=== PATIENT | male | born 1980 | race Caucasian/White ===

== ENCOUNTER 2020-08-24 13:38 | Emergency (ER) | payer MEDICAID, SELFPAY ==
--- NOTE | 2020-08-24 | ECG_ITS ---
Test Reason : PALPITATIONS Blood Pressure : / mmHG Vent. Rate : 121 BPM Atrial Rate : 121 BPM P-R Int : 144 ms QRS Dur : 086 ms QT Int : 318 ms P-R-T Axes : 036 007 016 degrees QTc Int : 451 ms Sinus tachycardia Otherwise normal ECG When compared to the previous EKG of 15 august 2015, rate is faster Referred By: Generic ED Physician Electronically Signed By:NATHALIA HANNA
--- NOTE | ~2020-08-24 | CT_ITS ---
EXAMINATION: CT HEAD WITHOUT CONTRAST CLINICAL INFORMATION: Dizziness COMPARISON: CT head 03/29/2013 TECHNIQUE: Contiguous axial imaging was performed from the skull base to vertex without intravenous administration of contrast. Coronal and sagittal reformatted images are performed at the CT scanner. [This CT examination was performed using dose optimization techniques as appropriate, variously including the following: *Automated exposure control *Adjustment of mA and/or kV according to patient size (this includes techniques or standardized protocols for targeted exams where dose is matched to indication/reason for exam; i.e. extremities or head) *Use of iterative reconstruction technique] DLP: 785 mGy-cm. FINDINGS: There is no evidence of acute intracranial hemorrhage or territorial infarction. No abnormal mass-effect or midline shift is seen. Fitzgerald to white matter differentiation is well preserved. No extra-axial fluid collections are identified. The ventricles are normal in size. There is no abnormal attenuation within the brain parenchyma. There is no osseous abnormality. The mastoid air cells and visualized portions of the paranasal sinuses are well-aerated. CT/CT head/brain wo con IMPRESSION: No acute intracranial pathology.
[2020-08-24 15:09] VITALS: BP 150/92; PULSE 130; RESP 28; TEMP 37.1; O2SAT 100; BMI 40.7
[2020-08-24 18:43] LABS: MANUAL DIFF FLAG NO
[2020-08-24 18:47] LABS: Basophils Percent Auto 0.1 % (0-2); Eosinophils Percent Auto 0.2 % (0-4); Hematocrit 43.8 % (42-52); Hemoglobin 14.9 g/dl (14.0-18.0); Imm Gran Abs Auto 0.04 X10*3/uL (0.00-0.03); Imm Gran Pct Auto 0.4 % (0.0-0.4); Lymphocytes Absolute Auto 1.4 X10*3/uL (1.2-4.9); Lymphocytes Percent Auto 13.5 % (20-40); Mean Corpuscular Hemoglobin 29.3 pg (27.0-33.0); Mean Corpuscular Volume 86.1 fL (80-98); Mean Platelet Volume 9.7 fL (9.4-12.4); Monocytes Absolute Auto 0.4 X10*3/uL (0.1-1.2); Monocytes Percent Auto 3.9 % (2-11); Neutrophils Absolute Auto 8.5 X10*3/uL (2.0-8.3); Neutrophils Percent Auto 81.9 % (45-73); Platelet Count 237 X10*3/uL (160-400); Red Blood Count 5.09 X10*6/uL (4.60-5.80); White Blood Count 10.4 X10*3/uL (4.8-10.8)
[2020-08-24 19:11] LABS: Alanine Aminotransferase 72 U/L (0-40); Albumin Level 4.3 g/dL (3.5-5.0); Alkaline Phosphatase 68 U/L (39-117); Anion Gap 14 (12-20); Aspartate Amino Transferase 35 U/L (5-37); Bilirubin Total 0.9 mg/dL (0.0-1.0); Blood Urea Nitrogen 19 mg/dL (9-16); Calcium 9.2 mg/dL (8.4-10.2); Carbon Dioxide 23 mmol/L (22-29); Chloride 106 mmol/L (96-108); Estimated Glomerular Filt Rate > 60; Glucose Random 132 mg/dL (60-115); Potassium 4.3 mmol/L (3.3-5.1); Sodium 139 mmol/L (135-145); Total Protein 7.5 g/dL (6.5-8.0)
[2020-08-24 19:17] LABS: Troponin-I High Sensitivity < 3.5 ng/L (<3.5-35.0)
[2020-08-24] MEDS: 0.9 % Sodium Chloride 1,000 ML 999 ML IV (21:01)
[2020-08-24 21:18] LABS: INTERNATIONAL NORM RATIO 1.1 (0.9-1.1); Prothrombin Time 12.6 SEC (10.8-13.0)
[2020-08-24 21:20] VITALS: BP 137/69; PULSE 91
[2020-08-24 21:20] LABS: Partial Thromboplastin Time 34.6 SEC (24.1-38.0)
[2020-08-24 21:21] VITALS: BP 145/74; PULSE 105
[2020-08-24 21:21] LABS: Magnesium 1.9 mg/dL (1.6-2.6)
[2020-08-24 21:24] LABS: D Dimer < 200 NG/ML
[2020-08-24 21:25] VITALS: BP 151/90; PULSE 111
[2020-08-24 21:42] LABS: Thyroid Stimulating Hormone 0.47 uIU/mL (0.32-4.0)
[2020-08-24 21:59] VITALS: BP 130/74; PULSE 93; RESP 18; TEMP 37.1; O2SAT 98
[2020-08-24 22:22] LABS: Glucose Urine UA NEG (NEG); Leukocyte Esterase Urine NEG (NEG); Nitrite Urine NEG (NEG); Specific Gravity - Urine 1.025 (1.005-1.025); Urine Blood NEG (NEG); Urine Ketones NEG (NEG); Urine Protein NEG (NEG-TRACE)
[2020-08-24 22:28] LABS: Appearance Urine CLEAR; Color Urine YELLOW
[2020-08-24 22:47] LABS: Amphetamine Screen Urine Not Detected (Not Detect); Barbiturates, Urine Not Detected (Not Detect); Benzodiazepines Screen Urine Not Detected (Not Detect); Cannabinoid Screen Urine POSITIVE (Not Detect); Cocaine Screen Urine Not Detected (Not Detect); Opiate Screen Urine Not Detected (Not Detect); Phencyclidine Screen Urine Not Detected (Not Detect)
[2020-08-24 23:35] LABS: Troponin-I High Sensitivity < 3.5 ng/L (<3.5-35.0)
--- NOTE | 2020-08-24 23:55 | ED.ARRPALP ---
HPI - Arrhythmia/Palpitations General Chief Complaint: Arrhythmia/Palpitations Stated Complaint: DIZZY SHAKEY RAPID HEART BEAT Time Seen by Provider: 08/24/20 20:34 Source: patient Mode of arrival: ambulatory Limitations: no limitations History of Present Illness HPI narrative: Patient presents to ED for a moment of dizziness diaphoretic, and palpitation that occurred at 11:00 o'clock after soda. Patient patient states he had moment of dizziness like the room was spinning. Patient denies ever having chest pain or shortness of breath. Patient denies hitting head, drug use, or alcohol use. Related Data Allergies Allergy/AdvReac Type Severity Reaction Status Date / Time No Known Allergies Allergy Unverified 01/28/20 17:27 Review of Systems Review of Systems: Yes all other systems are reviewed and are negative Constitutional: Constitutional: Reports as per HPI and Reports no additional constitutional complaints Eyes: Eyes: Reports as per HPI and Reports no additional eye complaints ENT: Reports system reviewed and no additional complaints, except as documented, Reports as per HPI, Reports dizziness and Reports dry mouth Cardiovascular: Cardiovascular: Reports as per HPI, Reports no additional cardiovascular complaints, Denies chest pain, Denies chest pain at rest and Denies chest pain with activity Comments: Palpitation Respiratory: Respiratory: Reports as per HPI and Reports no additional respiratory complaints Gastrointestinal: Gastrointestinal: Reports as per HPI and Reports no additional gastrointestinal complaints Genitourinary: Genitourinary: Reports no additional male genitourinary complaints and Reports as per HPI Musculoskeletal: Musculoskeletal: Reports no additional musculoskeletal complaints and Reports as per HPI Neurologic: Reports system reviewed and no additional complaints, except as documented, Reports as per HPI and Reports dizziness [facility] [place] Past Medical History Medical History (Updated 08/25/20 @ 00:08 by KORINA Pascal) Asthma HTN (hypertension) Social History Social History Advance Directives: Yes Advance Directives Information Provided: No Advance Directives on File: No Physical Exam Vital Signs: Vital Signs: Last Vital Signs Temp 98.7 F 08/24/20 21:59 Pulse 87 08/25/20 00:00 Resp 18 08/25/20 00:00 BP 149/95 H 08/25/20 00:00 Pulse Ox 97 08/25/20 00:00 Body Mass Index 40.7 Const: General: cooperative, healthy appearing, comfortable, no acute distress, well developed, alert, awake and Physically active Orientation/consciousness: patient oriented x3 HENMT: Head: Yes normal to inspection, Yes No palpable skull fracture present, Yes normocephalic, Yes atraumatic and No abrasion Eyes: Other: Negative nystagmus General: appearance normal, both eyes and all related structures Neck: Neck: Yes normal visual inspection, Yes full ROM, Yes no lymphadenopathy, Yes no meningeal signs, Yes trachea midline, Yes supple and No tender Resp: Effort & Inspection: normal respiratory effort and able to speak in complete sentences Auscultation: clear to auscultation bilaterally Cardio: Jugular venous distension: no JVD Heart sounds: S1 normal heart sound present and S2 normal heart sound present GI: Inspection: Yes normal to inspection and No abdominal wall ecchymosis Palpation (GI): Soft to palpation, not firm, nontender, no guarding and not rigid : General: No CVA tenderness and Yes no CVA tenderness Back/Spine/Pelvis: Back: no CVA tenderness, No CVA tenderness and No back tenderness Skin: General skin exam: no rashes or lesions noted and elasticity normal Neuro: Other: Negative slurred speech. Negative facial droop. All extremities equal strength and 5+. Negative Romberg sign. [id number] and rapid hand movement intact. Negative pronator drift General: patient oriented x3, no meningeal signs and CN's II-XI intact bilaterally Cranial nerves: Yes CN's II-XII intact bilaterally Extrem: General: Yes normal to inspection and Yes full ROM Psych: Appearance: grossly normal, well kempt and not disheveled Course Course Course Narrative: Patient will have cardiac evaluation. Negative for any neuro deficit or signs of stroke with patient will be sent for head CT. Patient also have thyroid and D-dimer sent to make sure patient is not having a typical presentation of PE or thyroid stone. Patient denies ever having chest pain or shortness of breath. Reevaluation(s) Reevaluation #1: EKG does show sinus tachycardia. Patient's troponin came back negative patient's D-dimer negative. Patient's PERC score 1. Head CT scan came back negative for any bleed. Might have had an anxiety reaction but will do so 2nd troponin to ensure there is no cardiac etiology. No need for chest x-ray due to patient denies any chest pain or shortness of breath. Patient has normal gait. Patient on the phone playing games. Patient not any distress. Reevaluation #2: Second troponin came back negative. Patient presently is asymptomatic. Patient informed to follow-up with his PCP. Patient might have had an anxiety attack. Patient states he was thinking about sad thoughts before episode, but due to risk factors and patient had a medical evaluation. Diagnosis will be dizziness. MDM - Arrhythmia/Palpitations MDM Narrative Medical decision making narrative: Dizziness. Lab Data Result diagrams: 08/24/20 18:37 08/24/20 18:37 Labs: Lab Results 08/24/20 08/24/20 08/24/20 Range/Units 18:37 18:37 18:37 WBC 10.4 (4.8-10.8) X10*3/uL RBC 5.09 (4.60-5.80) X10*6/uL Hgb 14.9 (14.0-18.0) g/dl Hct 43.8 (42-52) % MCV 86.1 (80-98) fL MCH 29.3 (27.0-33.0) pg MCHC 34.0 (31.0-36.0) g/dl RDW 12.0 (11.0-16.0) % Plt Count 237 (160-400) X10*3/uL MPV 9.7 (9.4-12.4) fL Immature Gran % (Auto) 0.4 (0.0-0.4) % Neut % (Auto) 81.9 H (45-73) % Lymph % (Auto) 13.5 L (20-40) % Cameron % (Auto) 3.9 (2-11) % Eos % (Auto) 0.2 (0-4) % Baso % (Auto) 0.1 (0-2) % Lymph # (Auto) 1.4 (1.2-4.9) X10*3/uL Cameron # (Auto) 0.4 (0.1-1.2) X10*3/uL Eos # (Auto) 0.0 (0.0-0.4) X10*3/uL Baso # (Auto) 0.0 (0.0-0.2) X10*3/uL Abs Immat Gran (auto) 0.04 H (0.00-0.03) X10*3/uL Absolute Neuts (auto) 8.5 H (2.0-8.3) X10*3/uL Absolute Nucleated RBC 0.000 (0.0-0.012) X10*3/uL Nucleated RBC % (auto) 0.0 (0.0-0.2) /100WBC PT (10.8-13.0) SEC INR (0.9-1.1) APTT (24.1-38.0) SEC D-Dimer NG/ML Sodium 139 (135-145) mmol/L Potassium 4.3 (3.3-5.1) mmol/L Chloride 106 (96-108) mmol/L Carbon Dioxide 23 (22-29) mmol/L Anion Gap 14 (12-20) BUN 19 H (9-16) mg/dL Creatinine 0.97 (0.5-1.4) mg/dL Estim Creat Clear Calc 123.0 Estimated GFR > 60 Random Glucose 132 H (60-115) mg/dL Calcium 9.2 (8.4-10.2) mg/dL Magnesium 1.9 (1.6-2.6) mg/dL Total Bilirubin 0.9 (0.0-1.0) mg/dL AST 35 (5-37) U/L ALT 72 H (0-40) U/L Alkaline Phosphatase 68 (39-117) U/L Troponin I High Sens < 3.5 (<3.5-35.0) ng/L Total Protein 7.5 (6.5-8.0) g/dL Albumin 4.3 (3.5-5.0) g/dL TSH 0.47 (0.32-4.0) uIU/mL Urine Color Urine Appearance Urine pH (5.0-8.0) Ur Specific Bowman (1.005-1.025) Urine Protein (NEG-TRACE) MG/DL Urine Glucose (UA) (NEG) MG/DL Urine Ketones (NEG) MG/DL Urine Blood (NEG) Urine Nitrite (NEG) Ur Leukocyte Esterase (NEG) Urine Opiates Screen (Not Detect) Ur Barbiturates Screen (Not Detect) Ur Phencyclidine Scrn (Not Detect) Ur Amphetamines Screen (Not Detect) U Benzodiazepines Scrn (Not Detect) Urine Cocaine Screen (Not Detect) U Marijuana (THC) Screen (Not Detect) 08/24/20 08/24/20 08/24/20 Range/Units 20:59 21:35 21:35 WBC (4.8-10.8) X10*3/uL RBC (4.60-5.80) X10*6/uL Hgb (14.0-18.0) g/dl Hct (42-52) % MCV (80-98) fL MCH (27.0-33.0) pg MCHC (31.0-36.0) g/dl RDW (11.0-16.0) % Plt Count (160-400) X10*3/uL MPV (9.4-12.4) fL Immature Gran % (Auto) (0.0-0.4) % Neut % (Auto) (45-73) % Lymph % (Auto) (20-40) % Cameron % (Auto) (2-11) % Eos % (Auto) (0-4) % Baso % (Auto) (0-2) % Lymph # (Auto) (1.2-4.9) X10*3/uL Cameron # (Auto) (0.1-1.2) X10*3/uL Eos # (Auto) (0.0-0.4) X10*3/uL Baso # (Auto) (0.0-0.2) X10*3/uL Abs Immat Gran (auto) (0.00-0.03) X10*3/uL Absolute Neuts (auto) (2.0-8.3) X10*3/uL Absolute Nucleated RBC (0.0-0.012) X10*3/uL Nucleated RBC % (auto) (0.0-0.2) /100WBC PT 12.6 (10.8-13.0) SEC INR 1.1 (0.9-1.1) APTT 34.6 (24.1-38.0) SEC D-Dimer < 200 NG/ML Sodium (135-145) mmol/L Potassium (3.3-5.1) mmol/L Chloride (96-108) mmol/L Carbon Dioxide (22-29) mmol/L Anion Gap (12-20) BUN (9-16) mg/dL Creatinine (0.5-1.4) mg/dL Estim Creat Clear Calc Estimated GFR Random Glucose (60-115) mg/dL Calcium (8.4-10.2) mg/dL Magnesium (1.6-2.6) mg/dL Total Bilirubin (0.0-1.0) mg/dL AST (5-37) U/L ALT (0-40) U/L Alkaline Phosphatase (39-117) U/L Troponin I High Sens (<3.5-35.0) ng/L Total Protein (6.5-8.0) g/dL Albumin (3.5-5.0) g/dL TSH (0.32-4.0) uIU/mL Urine Color YELLOW Urine Appearance CLEAR Urine pH 7.0 (5.0-8.0) Ur Specific Bowman 1.025 (1.005-1.025) Urine Protein NEG (NEG-TRACE) MG/DL Urine Glucose (UA) NEG (NEG) MG/DL Urine Ketones NEG (NEG) MG/DL Urine Blood NEG (NEG) Urine Nitrite NEG (NEG) Ur Leukocyte Esterase NEG (NEG) Urine Opiates Screen Not Detected (Not Detect) Ur Barbiturates Screen Not Detected (Not Detect) Ur Phencyclidine Scrn Not Detected (Not Detect) Ur Amphetamines Screen Not Detected (Not Detect) U Benzodiazepines Scrn Not Detected (Not Detect) Urine Cocaine Screen Not Detected (Not Detect) U Marijuana (THC) Screen POSITIVE H (Not Detect) 08/24/20 Range/Units 22:58 WBC (4.8-10.8) X10*3/uL RBC (4.60-5.80) X10*6/uL Hgb (14.0-18.0) g/dl Hct (42-52) % MCV (80-98) fL MCH (27.0-33.0) pg MCHC (31.0-36.0) g/dl RDW (11.0-16.0) % Plt Count (160-400) X10*3/uL MPV (9.4-12.4) fL Immature Gran % (Auto) (0.0-0.4) % Neut % (Auto) (45-73) % Lymph % (Auto) (20-40) % Cameron % (Auto) (2-11) % Eos % (Auto) (0-4) % Baso % (Auto) (0-2) % Lymph # (Auto) (1.2-4.9) X10*3/uL Cameron # (Auto) (0.1-1.2) X10*3/uL Eos # (Auto) (0.0-0.4) X10*3/uL Baso # (Auto) (0.0-0.2) X10*3/uL Abs Immat Gran (auto) (0.00-0.03) X10*3/uL Absolute Neuts (auto) (2.0-8.3) X10*3/uL Absolute Nucleated RBC (0.0-0.012) X10*3/uL Nucleated RBC % (auto) (0.0-0.2) /100WBC PT (10.8-13.0) SEC INR (0.9-1.1) APTT (24.1-38.0) SEC D-Dimer NG/ML Sodium (135-145) mmol/L Potassium (3.3-5.1) mmol/L Chloride (96-108) mmol/L Carbon Dioxide (22-29) mmol/L Anion Gap (12-20) BUN (9-16) mg/dL Creatinine (0.5-1.4) mg/dL Estim Creat Clear Calc Estimated GFR Random Glucose (60-115) mg/dL Calcium (8.4-10.2) mg/dL Magnesium (1.6-2.6) mg/dL Total Bilirubin (0.0-1.0) mg/dL AST (5-37) U/L ALT (0-40) U/L Alkaline Phosphatase (39-117) U/L Troponin I High Sens < 3.5 (<3.5-35.0) ng/L Total Protein (6.5-8.0) g/dL Albumin (3.5-5.0) g/dL TSH (0.32-4.0) uIU/mL Urine Color Urine Appearance Urine pH (5.0-8.0) Ur Specific Bowman (1.005-1.025) Urine Protein (NEG-TRACE) MG/DL Urine Glucose (UA) (NEG) MG/DL Urine Ketones (NEG) MG/DL Urine Blood (NEG) Urine Nitrite (NEG) Ur Leukocyte Esterase (NEG) Urine Opiates Screen (Not Detect) Ur Barbiturates Screen (Not Detect) Ur Phencyclidine Scrn (Not Detect) Ur Amphetamines Screen (Not Detect) U Benzodiazepines Scrn (Not Detect) Urine Cocaine Screen (Not Detect) U Marijuana (THC) Screen (Not Detect) ECG Data Interpretation: Sinus tachycardia. Ventricular rate was 121. Pr interval 144. QRS 86. QTC 451. Negative STEMI Discharge Plan Discharge Clinical Impression: Palpitations, Dizziness Patient Disposition: Home, Self-Care Instructions: Heart Palpitations (ED), Dizziness (ED) Additional Instructions: Regrese al servicio de urgencias de inmediato si tiene dolor de pecho,caida facial, dificultad para respirar, dificultad para hablar, p?rdida de la visi?n, dolor de trevor, par?lisis, mareos, hinchaz?n de las piernas, dolor en la pantorrilla, tos con kailash, fiebre, escalofr?os o cualquier otro s?ntoma preocupante. Jamal troponinas resultaron negativas para un ataque card?aco. Poe nivel de tiroides volvi? a la normalidad. Poe an?lisis de kailash, patricia la funci?n renal, la hemoglobina, el hematocrito y el recuento de gl?bulos blancos volvi? a la normalidad. jamal enzimas hep?amisha volvieron a la normalidad. Poe orina no muestra infecci?n. La tomograf?a computarizada de la trevor result? negativa para sangrado. Jn un seguimiento con poe PCP. Referrals: Jazlyn Gagnon, DO [Primary Care Provider] - 2 days (Follow-up for dizziness/palpitation. Patient had normal medical workup in the ED.) Interventions: ED Discharge Assessment Last Done: 08/25/20 00:33 Discharge Date/Time: 08/25/20 00:35 Print Language: [place]ese
[2020-08-25] VITALS: BP 149/95; PULSE 87; RESP 18; O2SAT 97
== END 2020-08-25 00:35 | disposition home or self-care (01) ==
PROVIDERS: Physician Assistant; Emergency Provider Emergency Medicine; PCP Family Medicine
DX: R00.2 Palpitations (principal); R42 Dizziness and giddiness; R00.0 Tachycardia, unspecified; I10 Essential (primary) hypertension; J45.909 Unspecified asthma, uncomplicated; F12.90 Cannabis use, unspecified, uncomplicated
CPT/HCPCS: 36415; 70450; 80053; 80307; 81003; 83735; 84443; 84484; 85025; 85379; 85610; 85730; 93005; 96360; 99284

== ENCOUNTER 2021-07-05 10:25 | Outpatient (REF) | payer MEDICAID, SELFPAY ==
--- NOTE | 2021-07-05 10:23 | EMG_ITS ---
This is a 41-year-old man with 1 month history of pain, numbness, and tingling intermittently in both feet. His neurological examination reveals cranial nerves II through XII normal. Muscle tone and strength are normal in all 4 extremities. Deep tendon reflexes symmetrical, 2+. Plantar responses are flexor. IMPRESSION: Rule out peripheral neuropathy. Nerve conduction EMG study: Normal electrodiagnostic study of both lower extremities. There is no electrodiagnostic evidence of nerve entrapment or generalized peripheral neuropathy. Normal EMG of the right L4-S1 innervated muscles. MD TANESHA Bassett/DERRICK / [id number]
== END 2021-07-05 10:26 | disposition home or self-care (01) ==
LOC: HO.NEURO 10:25
PROVIDERS: Visit Provider Family Medicine
DX: R20.8 Other disturbances of skin sensation (principal)
CPT/HCPCS: 95885; 95911

== ENCOUNTER → 2022-01-09 13:07 | Outpatient (BNVA) | payer MEDICAID, SELFPAY | PROVIDERS: PCP Family Medicine; Referring Provider Family Medicine; Visit Provider Internal Medicine | DX: R07.2 Precordial pain (principal) | CPT/HCPCS: 93005; 99202 ==

== ENCOUNTER → 2022-01-31 08:56 | Outpatient (REF) | payer MEDICAID, SELFPAY ==
--- NOTE | 2022-01-31 08:58 | CA_ITS ---
Acquisition Time: 2022-01-31 09:56:43 Total Exercise Time: 00:07:06 Test Indications: Chest Pain Medications: SEE H Protocol: VERONIQUE Max HR: 162 BPM 91% of Pred: 178 BPM Max BP: 148/080 mmHG Max Work Load: 8.6 METS Exercise stress test with exercise 7 min 6 sec of Veronique protocol, achieving 91% MPHR, with fatigue and moderate sob, No chest discomfort, without arrythmia, with normotensive response to exercise, without EKG changes meeting criteira for ischemia. In recovery his breathing improved with rest. Test reviewed with Dr Rogers. Referred By: Dylan Rogers Overread By: JERE ROSAS
--- NOTE | 2022-01-31 09:10 | CA_ITS ---
Transthoracic Echocardiogram Patient (Last, First, Middle): Jose Antonio Sousa, Gender: Male Date of : 1980 Age: 41 Procedure Date: 01/31/2022 Procedure Type: Transthoracic Echocardiogram Location: OP Height: 180.34 cm Weight: 117.94 kg BSA: 2.36 m2 Heart Rate: bpm BP: 140 / 70 mmHg Gluer: Referring MD: Dylan Rogers MD Symptoms: R07.2 - Precordial pain Study Quality: Good ECG Rhythm: Sinus Conclusions: - The left ventricular systolic function is normal. The calculated ejection fraction is 62% by biplane method. - No obvious valvular pathology seen on this study. Findings Left Ventricle Normal left ventricular cavity size. There is mildly increased left ventricular wall thickness. The left ventricular systolic function is normal. The calculated ejection fraction is 62% by biplane method. There is no evidence of regional wall motion abnormalities. Diastolic function is normal for age. LV peak GLS -19.4%. Right Ventricle Normal right ventricular cavity size and systolic function. Atria Both atria are normal in size. Aortic Valve There is a normal trileaflet aortic valve. There is no aortic valve stenosis. There is no aortic valve regurgitation. Mitral Valve The mitral valve appears normal. There is no mitral valve regurgitation. There is no mitral valve stenosis. Pulmonic Valve The pulmonic valve is likely normal. Tricuspid Valve Normal tricuspid valve structure. There is trace tricuspid valve regurgitation. There is no evidence of pulmonary hypertension. Great Vessels Variable measurements across the ascending aorta. From 3.4-4 cm. Suspect technical. Venous The inferior vena cava is normal in size and collapses less than 50% with inspiration. Pericardium/Pleural There is no evidence of pericardial effusion. Prior Study Comparison No prior study available for comparison. Recommendations, Care & Conclusions No obvious valvular pathology seen on this study. Measurements 2D Linear Measurements IVSd: 1.14 0.6-0.9/0.6-1.0 cm LVIDd: 4.95 3.9-5.3/4.2-5.9 cm LVIDd Index: 2.10 2.4-3.2/2.2-3.1 cm/m2 LVIDs: 3.23 2.0-3.6 cm LVPWd: 1.11 0.7-1.1 cm LA Diam: 4.70 2.7-3.8/3.0-4.0 cm LAIDs Index: 1.99 1.5-2.3 cm/m2 LV Mass: 262.04 67-162/88-224 g LV Mass Index: 111.03 43-95/49-115 g/m2 LVOT Diam: 2.30 3.0+(-)1.3 cm 2D Systolic Function EF 4C: 63.60 >55% EF 2C: 63.40 >55% EF BiP: 62.10 >55% Mitral Valve MV Pk E: 0.77 MV PK A: 0.66 MV Decel Time: 179.00 E/A: 1.20 E'Lateral: 9.90 E'Medial: 6.42 E/E' Med: 12.00 E/E' Lat: 7.80 PHT: 52.00 MVA PHT: 4.23 Decel Mccurtain: 4.31 Aortic Valve AoV Pk Perez: 1.64 AoV Mn Perez: 0.98 AoV VTI: 0.33 AoV Pk Grad: 11.00 Aov Mn Grad: 5.00 BRIGIDO Cont.VTI: 2.88 LVOT LVOT Pk Perez: 1.04 LVOT Mn Perez: 0.67 LVOT VTI: 0.23 LVOT Pk Grad: 4.00 LVOT Mn Grad: 2.00 LVOT Diam: 2.30 LVOT Area: 4.15 Diastolic Function MV Pk E: 0.77 MV Pk A: 0.66 E/A: 1.20 E'Medial: 6.42 E/E' Med: 12.00 E' Laterial: 9.90 E/E' Lat: 7.80 Right Ventricle TAPSE (mm): 22.40 TVS' Perez: 12.20 Tricuspid Valve TR Pk Perez: 2.25 TR Pk Grad: 20.00 RA Press: 8.00 RVSP: 28.00 Great Vessels Aorta Sinus of Valsalva: 3.70 2.0-3.5 cm Ao Asc: 3.70 2.1-3.4 cm Pulmonary Valve PV Pk Perez: 1.02 Peak PV Grad: 4.00 Updated in Other Vendor System with Status of Final Dylan Rogers MD electronically signed on 02/01/2022 10:47:20 AM with status of Final
== END ==
LOC: HO.CARD 08:56
PROVIDERS: PCP Family Medicine; Visit Provider Internal Medicine
DX: R07.2 Precordial pain (principal)
CPT/HCPCS: 93017; 93306; 93356

== ENCOUNTER → 2023-02-13 09:30 | Outpatient (REF) | payer MEDICAID, SELFPAY | LOC: HO.CARD 09:30 | PROVIDERS: PCP Family Medicine; Visit Provider Internal Medicine | DX: I77.89 Other specified disorders of arteries and arterioles (principal) | CPT/HCPCS: 93306; 93356; Q9957 ==

== ENCOUNTER → 2023-02-13 09:39 | Outpatient (BNV) | payer MEDICAID, SELFPAY | PROVIDERS: PCP Family Medicine; Visit Provider Internal Medicine | DX: R07.2 Precordial pain (principal) | CPT/HCPCS: 93306 ==

== ENCOUNTER 2023-03-20 09:47 | Outpatient (REF) | payer MEDICAID, SELFPAY ==
[2023-03-20 11:09] LABS: MANUAL DIFF FLAG NO
[2023-03-20 11:36] LABS: Basophils Percent Auto 0.5 % (0-2); Eosinophils Absolute Auto 0.1 X10*3/uL (0.0-0.4); Eosinophils Percent Auto 2.5 % (0-4); Hematocrit 47.7 % (42.0-52.0); Hemoglobin 16.2 g/dl (14.0-18.0); Imm Gran Abs Auto 0.01 X10*3/uL (0.00-0.03); Imm Gran Pct Auto 0.2 % (0.0-0.4); Lymphocytes Absolute Auto 1.7 X10*3/uL (1.2-4.9); Mean Corpuscular Hemoglobin 29.1 pg (27.0-33.0); Mean Corpuscular Volume 85.8 fL (80.0-98.0); Mean Platelet Volume 9.8 fL (9.4-12.4); Monocytes Absolute Auto 0.4 X10*3/uL (0.1-1.2); Monocytes Percent Auto 7.3 % (2-11); Neutrophils Absolute Auto 3.3 x10*3/uL (2.0-8.3); Neutrophils Percent Auto 59.5 % (45-73); Platelet Count 249 X10*3/uL (160-400); Red Blood Count 5.56 X10*6/uL (4.60-5.80); Red Cell Distribution Width 12.4 % (11.0-16.0); White Blood Count 5.5 X10*3/uL (4.8-10.8)
[2023-03-20 11:43] LABS: Estimated Average Glucose 111 mg/dL; Hemoglobin A1c % 5.5 % (<6.0)
[2023-03-20 12:00] LABS: Syphilis Screen Nonreactive (Nonreactive)
[2023-03-20 12:05] LABS: Alanine Aminotransferase 80 U/L (0-40); Albumin Level 4.5 g/dL (3.5-5.0); Alkaline Phosphatase 69 U/L (39-117); Anion Gap 13 (12-20); Aspartate Amino Transferase 46 U/L (5-37); Bilirubin Direct 0.4 mg/dL (0.0-0.5); Bilirubin Total 1.5 mg/dL (0.0-1.0); Blood Urea Nitrogen 11 mg/dL (9-16); Calcium 9.1 mg/dL (8.4-10.2); Carbon Dioxide 24 mmol/L (22-29); Chloride 106 mmol/L (96-108); Cholesterol 134 mg/dL (<200); Estimated Glomerular Filt Rate > 60; Glucose Random 89 mg/dL (60-115); HDL Cholesterol 31 mg/dL (>40); HIV AB/AG Nonreactive (Nonreactive); HIV Num 1 0.07 S/CO (0.00-0.99); LDL Cholesterol Calculated 76 mg/dL (<100); Sodium 139 mmol/L (135-145); Triglycerides 138 mg/dL (<150)
[2023-03-20 12:06] LABS: Creatinine Urine 62.71 mg/dL; Free T4 (Free Thyroxine) 0.82 ng/dL (0.71-1.85); Microalbum/Creatinine Ratio Ur 9.5 ug/mg cr (<30); Thyroid Stimulating Hormone 1.31 uIU/mL (0.32-4.0); Vitamin D 25-OH Total 27.6 ng/mL (>30)
[2023-03-20 12:07] LABS: ~HepC Num1 0.07 S/CO (0.00-0.79); ~Hepatitis C Antibody Nonreactive (Nonreactive)
[2023-03-20 13:53] LABS: CT PCR NOT DETECTED (Not Detect.); NG PCR NOT DETECTED (Not Detect.)
== END 2023-03-20 09:48 | disposition home or self-care (01) ==
LOC: HO.HHCL 09:47
PROVIDERS: Visit Provider Family Medicine
DX: Z11.4 Encounter for screening for human immunodeficiency virus [HIV] (principal); Z11.3 Encounter for screening for infections with a predominantly sexual mode of transmission; I10 Essential (primary) hypertension
CPT/HCPCS: 0353U; 36415; 80048; 80061; 80076; 82043; 82306; 82570; 83036; 84439; 84443; 85025; 86780; 86803; 87389

== ENCOUNTER 2023-04-24 10:15 | Outpatient (REF) | payer MEDICAID, SELFPAY ==
--- NOTE | ~2023-04-24 | US_ITS ---
EXAMINATION: US SCROTUM CLINICAL INFORMATION: Right testicular lump. COMPARISON: None available. TECHNIQUE: A sonogram of the scrotum was performed assessing gomez-scale appearance and color Doppler flow. Spectral Doppler analysis of the arterial and venous flow were performed in the testes bilaterally. FINDINGS: RIGHT: Right testicle measures 4.6 x 2.2 x 2.9 cm, volume 15.4 mL. A 1.3 cm septated testicular cyst. No suspicious solid testicular mass. Spectral Doppler analysis of the arterial and venous flow is normal in the right testis. Right epididymal head is normal in size. No right hydrocele or varicocele is seen. Right epididymal Doppler flow is normal. LEFT: Left testicle measures 4.8 x 2.8 x 2.9 cm, volume 20.0 mL. No focal testicular parenchymal lesions are visualized. Spectral Doppler analysis of the arterial and venous flow is normal in the left testis. Left epididymal head is normal in size. No left hydrocele or varicocele is seen. Left epididymal Doppler flow is normal. US/US scrotum IMPRESSION: A 1.3 cm septated right testicular cyst. No suspicious solid testicular mass.
--- NOTE | ~2023-04-24 | US_ITS ---
EXAMINATION: US ABDOMEN COMPLETE CLINICAL INFORMATION: Fatty change of liver. COMPARISON: Ultrasound abdomen complete 08/19/2018 and 05/03/2015. TECHNIQUE: Real-time imaging of the abdominal viscera. FINDINGS: PANCREAS: Normal. ABDOMINAL AORTA: The proximal, mid, and distal segments are normal in caliber. INFERIOR VENA CAVA: Visualized portions are normal. LIVER: The liver is normal in size. The liver contour is normal. Increased hepatic echogenicity with similar probable focal fatty sparing in the left hepatic lobe compatible with hepatic steatosis. No definite other focal lesion is seen, but evaluation is limited due to poor sound beam penetration through the coarse echogenic liver parenchyma. There is no intrahepatic biliary duct dilatation seen. GALLBLADDER: Normal. The gallbladder is physiologically distended without evidence of stones, sludge, polyps, wall thickening or pericholecystic fluid. COMMON BILE DUCT: Normal in caliber measuring 0.61 cm in diameter. RIGHT KIDNEY: Normal. No hydronephrosis. No renal calculi or focal parenchymal lesions. The kidney measures 12.5 cm in maximum dimension. LEFT KIDNEY: Normal. No hydronephrosis. No renal calculi or focal parenchymal lesions. The kidney measures 12.3 cm in maximum dimension. SPLEEN: Normal. The spleen measures 12.9 cm in maximum dimension. FREE FLUID: None. US/US abdomen complete IMPRESSION: Hepatic steatosis with similar probable focal fatty sparing in the left hepatic lobe. No definite other focal lesion is seen, but evaluation is limited due to poor sound beam penetration through the coarse echogenic liver parenchyma.
== END 2023-04-24 10:16 | disposition home or self-care (01) ==
LOC: HO.US 10:15
PROVIDERS: PCP Family Medicine; Visit Provider Family Medicine
DX: K76.0 Fatty (change of) liver, not elsewhere classified (principal); N50.89 Other specified disorders of the male genital organs
CPT/HCPCS: 76700; 76870

== ENCOUNTER 2023-05-14 10:49 | Outpatient (AMB) | payer MEDICAID, SELFPAY ==
--- NOTE | 2023-05-14 10:55 | MHC.OFFVIS ---
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 States his trigger finger is worse in the morning. Patient reports this started about a year ago and has worsen. Patient would like to discuss injection vs surgical intervention. 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 He is seen with a woman who we believe to be his , who acted as a plasma center technician. He complains of painful locking & catching of his bilateral middle fingers, which he says has been present for ~1 year now and is worse in the mornings. He denies any prior treatment options. He works in [employer] in the summer months, and does not work during the winter. [facility], LATER [facility] Medical History (Updated 05/14/23 @ 11:05 by Oscar Sin) HTN (hypertension) Asthma Surgical History (Updated 01/09/22 @ 13:13 [address]VE Cook) No pertinent past surgical history Family History (Updated 01/09/22 @ 13:[address]VE Cook) Father No problems noted. Mother No problems noted. Maternal Grandfather Myocardial infarct Maternal Uncle Myocardial infarct Social History (Updated 05/14/23 @ 11:00 by Mariam Smith) Alcohol intake: never Patient Tobacco Use Status: Never used Tobacco Current occupational status: employed Current occupation: [employer]/ left hand dominant Review of Systems Const All systems reviewed & are unremarkable except as noted in HPI and below Physical Exam Vital Signs: BMI result Body Mass Index 43.8 Const General: cooperative, healthy appearing and no acute distress Orientation/consciousness: patient oriented x3 HEENT Head: Yes normocephalic and Yes atraumatic Eyes EOM: EOMs intact bilaterally Resp Effort & Inspection: normal respiratory effort and able to speak in complete sentences Cardio Jugular venous distension: no JVD Skin General skin exam: turgor normal Rashes: no rashes Neuro General: patient oriented x3 Extrem Other: Evaluation of Bilateral Upper Extremity: The patient is alert, oriented, and in no acute distress Neuro: Median, Ulnar, Radial nerves motor and sensory intact and sensation is normal to the tips of all digits Vascular: Cap refill brisk ROM: He can make a fist and extend all his digits Visible and palpable locking and catching of the bilateral middle fingers Tender over the a1 ofelia of the middle fingers Skin: No lacerations or abrasions. General: No Ecchymosis. No Erythema or evidence of infection. Psych Appearance: grossly normal Affect: normal affect Attitude: cooperative Office Procedures Fracture Care Details: No fracture, right middle finger trigger injection Fracture Billing Code: Fracture Billing Code Assessment & Plan Assessment & Plan (1) Trigger finger, right middle finger: Code(s): M65.331 - Trigger finger, right middle finger (2) Trigger finger, left middle finger: Code(s): M65.332 - Trigger finger, left middle finger Plan Assessment & Plan: 1. Right middle finger trigger finger 2. Left middle finger trigger finger I educated him about this condition I discussed operative and non-operative treatment options The patient would like to proceed with surgery for his left hand, and an injection for his right hand Regarding the right middle finger trigger finger: Injection #1: The risks and benefits of a steroid injection including but not limited to risk of damage to blood vessels, nerves, tendons, infection, skin bleaching, failure to improve symptoms, increased pain, and possible need for further injections or other intervention were discussed with the patient and the patient wishes to proceed with the steroid injection. Once consent was obtained, I sterilely prepped the area over the A1 ofelia of the flexor tendon sheath of the Right middle finger. I then injected the flexor tendon sheath with a combination of 1 mL of dexamethasone (4mg/ml), and 1% lidocaine. The patient tolerated the procedure well with no complications. If the patient continues to have locking and catching 4-6 weeks following this injection, they may call to schedule appointment to discuss alternative treatment options Regarding the left middle finger trigger finger: The risks and benefits of operative treatment were discussed with the patient and the patient wishes to proceed with surgery. These risks include, but are not limited to risk of damage to blood vessels, nerves, tendons, infection, recurrence, incomplete relief of preoperative symptoms, persistent pain, possible need for further surgery and the risks associated with regional blocks and anesthesia. The plan is to take the patient to the operating room sometime in the next few weeks for the following procedures: 1. Left middle finger trigger release, under local All of the preoperative paperwork including the consent was filled out today. All the patient's questions were answered. The patient understands that they will be contacted by our program scheduler soon to schedule this procedure. 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 He denies Diabetes, blood thinners, heart, lung, kidney issues He has a hx of asthma Scribed for Cheyenne Hatch MD by Oscar Sin, medical record retrieval specialist, on 05/14/23 at 11:10 AM, EST. Coding Level of Care Code New Pt Level 4 (25325) Diagnoses Trigger finger, right middle finger M65.331 Trigger finger, left middle finger M65.332 CPT Codes Fracture Care - Fracture Billing Code: Fracture Billing Code ([id number])
[2023-05-14 10:59] VITALS: BMI 43.8
== END 2023-05-14 11:32 | disposition home or self-care (01) ==
PROVIDERS: PCP Family Medicine; Referring Provider Family Medicine; Visit Provider Orthopaedic Surgery
DX: M65.331 Trigger finger, right middle finger (principal); M65.332 Trigger finger, left middle finger
CPT/HCPCS: 20550; 99204

== ENCOUNTER → 2023-05-14 10:49 | Outpatient (BNVA) | payer MEDICAID, SELFPAY | PROVIDERS: PCP Family Medicine; Visit Provider Orthopaedic Surgery | DX: M65.331 Trigger finger, right middle finger (principal); M65.332 Trigger finger, left middle finger | CPT/HCPCS: 20550; 99202; J1100 ==

== ENCOUNTER 2023-05-22 14:24 | Outpatient (AMB) | payer MEDICAID, SELFPAY ==
--- NOTE | 2023-05-22 14:33 | A.OFFVIS_ITS ---
Intake Intake Visit Reasons: OV-Lt Middle Finger - Wants injection Intake Note: Jose Antonio 43 yr old male presents today for his follow up visit for his Left Middle Finger. Hx of right middle finger injection from 05/14/23. Surgery was previously discussed for the left middle finger, however patient wishes to hav injection instead. Reports that the right middle finger injection was helpful. Allergies No Known Allergies Allergy (Verified 05/22/23 14:41) HPI OV-Lt Middle Finger - Wants injection HPI Details Jose Antonio is a 43 year old left hand dominant Belarusian speaking man who returns to discuss his left middle trigger finger. He is seen with a woman who we believe to be his , who acted as a hydroelectric powerplant supervisor. He says his right middle finger injection from 05/14/23 was helpful. Surgery for his left middle trigger finger was discussed at that appointment, but he wants to have his left finger injected instead. He denies any prior treatment options. He works in [employer] in the summer months, and does not work during the winter. [facility] Medical History (Updated 05/14/23 @ 11:05 by Oscar Sin) HTN (hypertension) Asthma Surgical History (Updated 01/09/22 @ 13:13 [address]VE Cook) No pertinent past surgical history Family History (Updated 01/09/22 @ 13:[address] Cook) Father No problems noted. Mother No problems noted. Maternal Grandfather Myocardial infarct Maternal Uncle Myocardial infarct Social History (Updated 05/14/23 @ 11:00 by Mariam Smith) Alcohol intake: never Patient Tobacco Use Status: Never used Tobacco Current occupational status: employed Current occupation: [employer]/ left hand dominant Physical Exam Extrem Other: Evaluation of Left Upper Extremity: The patient is alert, oriented, and in no acute distress Neuro: Median, Ulnar, Radial nerves motor and sensory intact and sensation is normal to the tips of all digits Vascular: Cap refill brisk ROM: He can make a fist and extend all his digits Visible and palpable locking and catching of the left middle finger Tender over the a1 ofelia of the left middle finger Office Procedures Fracture Care Details: No fracture, injection [id number] Fracture Billing Code: Fracture Billing Code Assessment & Plan Assessment & Plan (1) Trigger finger, right middle finger: Code(s): M65.331 - Trigger finger, right middle finger (2) Trigger finger, left middle finger: Code(s): M65.332 - Trigger finger, left middle finger Plan Assessment & Plan: 1. Right middle finger trigger finger, S/P injection Date of Injection: 05/14/23 With good improvement in his symptoms following his injection 2. Left middle finger trigger finger I educated him about this condition I discussed operative and non-operative treatment options The patient would like an injection today, and would no longer like to have surgery Injection #1: The risks and benefits of a steroid injection including but not limited to risk of damage to blood vessels, nerves, tendons, infection, skin bleaching, failure to improve symptoms, increased pain, and possible need for further injections or other intervention were discussed with the patient and the patient wishes to proceed with the steroid injection. Once consent was obtained, I sterilely prepped the area over the A1 ofelia of the flexor tendon sheath of the Left middle finger. I then injected the flexor tendon sheath with a combination of 1 mL of dexamethasone (4mg/ml), and 1% lidocaine. The patient tolerated the procedure well with no complications. If the patient continues to have locking and catching 4-6 weeks following this injection, they may call to schedule appointment to discuss alternative treatment options Scribed for Cheyenne Hatch MD by Oscar Sin, manager medical, on 05/22/23 at 2:50 PM, EST. Coding Level of Care Code Est Pt Level 3 (18066) Diagnoses Trigger finger, right middle finger M65.331 Trigger finger, left middle finger M65.332 CPT Codes Fracture Care - Fracture Billing Code: Fracture Billing Code ([id number])
== END 2023-05-22 15:14 | disposition home or self-care (01) ==
LOC: HO.HOS 14:24
PROVIDERS: PCP Family Medicine; Visit Provider Orthopaedic Surgery
DX: M65.331 Trigger finger, right middle finger (principal); M65.332 Trigger finger, left middle finger
CPT/HCPCS: 20550; 99213

== ENCOUNTER → 2023-05-22 14:24 | Outpatient (BNVA) | payer MEDICAID, SELFPAY | PROVIDERS: PCP Family Medicine; Visit Provider Orthopaedic Surgery | DX: M65.332 Trigger finger, left middle finger (principal) | CPT/HCPCS: 20550; 99212; J1100 ==

== ENCOUNTER → 2023-06-06 19:30 | Outpatient (REF) | payer MEDICAID, SELFPAY | LOC: HO.SL 19:30 | PROVIDERS: PCP Family Medicine; Visit Provider Family Medicine | DX: Z13.89 Encounter for screening for other disorder (principal) ==

== ENCOUNTER 2023-06-21 09:00 | Outpatient (AMB) | payer MEDICAID, SELFPAY ==
--- NOTE | 2023-06-21 09:26 | A.OFFVIS_ITS ---
Intake Intake Visit Reasons: testicular lump N50.89 Intake Note: NEW Patient presents today to established treatment for Testicular Lump: Meds- None Allergies to Antibiotic- No Known Allergies Blood Thinner- None Staffing Branch Manager Required: No Accompanied by: Significant Other Allergies No Known Allergies Allergy (Verified 05/22/23 14:41) HPI HPI Comments History of Present Illness Details Jose Antonio is a 43-year-old male who is here for evaluation for a 'lump on his right testicle'. The patient is here with his who interprets for him. The patient states that he noticed something in his testicle in February he denies any pain he discussed it with his in April who told him he should have it evaluated. The patient had a testicular ultrasound done that noted a small 1.3 cm septated cyst on the right testicle no solid mass noted. The patient denies any irritative voiding symptoms. He denies any STDs. In discussion with the patient he states that his father is being evaluated for possible prostate cancer he is unsure of the final diagnosis. I have discussed with him that prostate cancer is hereditary. 04/24/23--scrotal ultrasound-1.3 cm sept ated right testicular cyst. No suspicious solid testicular mass. Plan: Repeat scrotal ultrasound in 2 months, PSA screening. [facility] Medical History HTN (hypertension) Asthma Surgical History No pertinent past surgical history Family History Father No problems noted. Mother No problems noted. 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 Review of Systems Const All systems reviewed & are unremarkable except as noted in HPI and below Reports no additional complaints Eyes Reports no additional complaints ENT Reports no additional complaints Card Denies dyspnea Resp Denies cough and Denies dyspnea GI Reports no additional complaints Musc Reports no additional complaints Skin/Breast Denies rash and Denies unusual bruising Neuro Reports no additional complaints Psych Reports no additional complaints Endo Reports no additional complaints Romel/Lymph Reports no additional complaints Aller/Immun Reports no additional complaints Physical Exam Const General: healthy appearing, no acute distress and well developed Orientation/consciousness: patient oriented x3 HEENT Head: Yes normocephalic and Yes atraumatic Eyes Conjunctivae: conjunctivae normal Neck Neck: Yes normal visual inspection Chest Chest palpation & inspection: normal inspection of the chest Resp Effort & Inspection: normal respiratory effort Cardio Rate: regular rate GI Inspection: Yes normal to inspection Palpation (GI): Soft to palpation Other: No suspicious findings on testicular exam. Penis: normal penis Scrotum: scrotum normal Skin General skin exam: no rashes or lesions noted Neuro General: patient oriented x3 Extrem General: No pedal edema Psych Appearance: grossly normal Affect: normal affect Results AMB Urinalysis, Automated UA Leukoctes 0 Rachel/uL Last Edit by AVE Amor on 06/21/23 09:38 UA Nitrite Negative Last Edit by AVE Amor on 06/21/23 09:38 UA Urobilinogen 0.2 mg/dL Last Edit by AVE Amor on 06/21/23 09:3 8 UA Protein 15 mg/dL Last Edit by AVE Amor on 06/21/23 09:38 UA pH 5.0 Last Edit by AVE Amor on 06/21/23 09:38 UA Blood 0 Jimmy/uL Last Edit by AVE Amor on 06/21/23 09:38 UA Specific [place] 1.030 Last Edit by AVE Amor on 06/21/23 09: 38 UA Ketone Positive Last Edit by AVE Amor on 06/21/23 09:38 5 mg/dL Gina Casillas 06/21/23 09:38 UA Bilirubin 2 mg/dL Last Edit by AVE Amor on 06/21/23 09:38 2 mg/dL Gina Casillas 06/21/23 09:38 UA Glucose 0 mg/dL Last Edit by AVE Amor on 06/21/23 09:38 Results Reviewed Results Reviewed: Laboratory Last Values Urine pH (Auto) 5.0 06/21/23 09:35 Specific [place] (Auto) 1.030 06/21/23 09:35 Urine Protein (Auto) 15 mg/dL 06/21/23 09:35 Glucose (UA)(Auto) 0 mg/dL 06/21/23 09:35 Urine Ketones (Auto) Positive 06/21/23 09:35 Urine Blood (Auto) 0 Jimmy/uL 06/21/23 09:35 Urine Nitrite (Auto) Negative 06/21/23 09:35 Urine Bilirubin (Auto) 2 mg/dL 06/21/23 09:35 Urine Urobilinogen (Auto) 0.2 mg/dL 06/21/23 09:35 Leukocyte Esterase (Auto) 0 Rachel/uL 06/21/23 09:35 Date of Service: 04/24/23 Procedure(s): US scrotum EXAMINATION: US SCROTUM CLINICAL INFORMATION: Right testicular lump. COMPARISON: None available. TECHNIQUE: A sonogram of the scrotum was performed assessing gomez-scale appearance and color Doppler flow. Spectral Doppler analysis of the arterial and venous flow were performed in the testes bilaterally. FINDINGS: RIGHT: Right testicle measures 4.6 x 2.2 x 2.9 cm, volume 15.4 mL. A 1.3 cm septated testicular cyst. No suspicious solid testicular mass. Spectral Doppler analysis of the arterial and venous flow is normal in the right testis. Right epididymal head is normal in size. No right hydrocele or varicocele is seen. Right epididymal Doppler flow is normal. LEFT: Left testicle measures 4.8 x 2.8 x 2.9 cm, volume 20.0 mL. No focal testicular parenchymal lesions are visualized. Spectral Doppler analysis of the arterial and venous flow is normal in the left testis. Left epididymal head is normal in size. No left hydrocele or varicocele is seen. Left epididymal Doppler flow is normal. IMPRESSION: A 1.3 cm septated right testicular cyst. No suspicious solid testicular mass. Assessment & Plan Assessment & Plan (1) Testicular cyst: Code(s): N44.2 - Benign cyst of testis (2) Screening PSA (prostate specific antigen): Code(s): Z12.5 - Encounter for screening for malignant neoplasm of prostate Plan Re-evaluate right testicle. Ultrasound scrotum in 2 months PSA screening Orders: Orders AMB Urinalysis Automated 06/21/23 Z13.9 - Encounter for screening, unspecified Patient Instructions: The patient had an opportunity to ask questions regarding treatment plan. All questions were answered. Imaging, Laboratory studies and physical exam results were discussed and reviewed in detail. No major barriers to understanding were identified. The patient expressed understanding and agreement with the above treatment plan. The patient is aware they should contact our office by phone for worsening of their current condition or the appearance of new symptoms. Compliance is encouraged with any medications and followup testing that is ordered. It is a privilege to be allowed the opportunity to participate in the urologic care of your patient. If you have any questions or concerns regarding treatment for the above conditions please do not hesitate to contact me. The office tel ephone contact is [phone]. This note is constructed in part using voice recognition software. While every effort has been made to ensure accuracy material lister errors may have been included. Yours sincerely, Cindy Coreas MD Coding Level of Care Code New Pt Level 3 (18177) Diagnoses Testicular cyst N44.2 Screening PSA (prostate specific antigen) Z12.5
== END 2023-06-21 10:08 | disposition home or self-care (01) ==
PROVIDERS: PCP Family Medicine; Visit Provider Urology
DX: N44.2 Benign cyst of testis (principal); Z12.5 Encounter for screening for malignant neoplasm of prostate
CPT/HCPCS: 99203

== ENCOUNTER → 2023-06-21 09:00 | Outpatient (BNVA) | payer MEDICAID, SELFPAY | PROVIDERS: PCP Family Medicine; Visit Provider Urology | DX: Z12.5 Encounter for screening for malignant neoplasm of prostate (principal); N50.89 Other specified disorders of the male genital organs; N44.2 Benign cyst of testis | CPT/HCPCS: 81003; 99202 ==

== ENCOUNTER 2023-08-12 14:41 | Outpatient (REF) | payer MEDICAID, SELFPAY ==
--- NOTE | ~2023-08-12 | US_ITS ---
EXAMINATION: US SCROTUM CLINICAL INFORMATION: Benign cyst of testis. COMPARISON: Ultrasound scrotum dated 04/24/2023. TECHNIQUE: A sonogram of the scrotum was performed assessing gomez-scale appearance and color Doppler flow. Spectral Doppler analysis of the arterial and venous flow were performed in the testes bilaterally. FINDINGS: RIGHT: Right testicle measures 4.7 x 2.6 x 2.8 cm, volume 17.9 mL. No focal testicular parenchymal lesions are visualized. Spectral Doppler analysis of the arterial and venous flow is normal in the right testis. Within the right testicle, a 1.1 x 1.0 x 1.0 cm anechoic cyst is seen, with partial septation. On the comparison ultrasound examination dated 04/24/2023, this measured 1.3 x 1.0 x 0.9 cm Right epididymal head is normal in size. No right hydrocele or varicocele is seen. Right epididymal Doppler flow is normal. LEFT: Left testicle measures 4.6 x 2.8 x 2.9 cm, volume 19.5 mL. No focal testicular parenchymal lesions are visualized. Spectral Doppler analysis of the arterial and venous flow is normal in the left testis. Left epididymal head is normal in size. A 4 mm epididymal head cyst versus spermatocele is seen. No left hydrocele or varicocele is seen. Left epididymal Doppler flow is normal. US/US scrotum IMPRESSION: 1. A stable mildly complex cyst is seen within the right testicle. 2. A 4 mm left epididymal head cyst versus spermatocele is seen. 3. There is no testicular mass or torsion.
== END 2023-08-12 14:42 | disposition home or self-care (01) ==
LOC: HO.US 14:41
PROVIDERS: PCP Family Medicine; Visit Provider Urology
DX: N44.2 Benign cyst of testis (principal)
CPT/HCPCS: 76870

== ENCOUNTER 2023-09-20 09:55 | Outpatient (AMB) | payer MEDICAID, SELFPAY ==
--- NOTE | 2023-09-20 10:00 | A.OFFVIS_ITS ---
Intake Visit Reasons: 3m/US/lab Intake Note: Patient presents today for a follow-up on US/Lab Results: Meds- None Allergies to Antibiotic- No Known Allergies Blood Thinner- None Command Post Craftsman Required: No Accompanied by: Self / Same As Patient Allergies No Known Allergies Allergy (Verified 09/20/23 10:00) Medication List - Last Reconciled 09/21/23 by Cindy Coreas MD acetaminophen 1,000 mg PO Q6H PRN albuterol sulfate 90 mcg/actuation (ProAir HFA) 2 puffs inhalation Q4-6H PRN atorvastatin 20 mg PO BEDTIME cholecalciferol (vitamin D3) 50 mcg PO DAILY diclofenac sodium 1% 2 grams topical BID PRN fenofibrate 160 mg PO DAILY gabapentin 300 mg PO TID hydrochlorothiazide 25 mg PO DAILY lisinopril 20 mg PO DAILY loratadine 10 mg PO DAILY naproxen 500 mg PO BID PRN omega-3 fatty acids-fish oil 340-1,000 mg (Fish Oil) 1 cap PO BID omeprazole 20 mg PO QAM triamcinolone acetonide 2 sprays intranasal DAILY zolpidem 10 mg PO BEDTIME PRN HPI Comments Details: 09/20/2023--Jose Antonio is here for follow-up. He was evaluated due to small septated right testicular cyst. He is here post repeat ultrasound-08/12/2023- I have reviewed results bilateral testes negative for intra testicular mass, stable mildly complex cyst is seen within the right testicle. The patient denies testicular pain. He is asymptomatic. Plan is to follow-up p.r.n. Review of chart 06/21/2023- Jose Antonio is a 43-year-old male who is here for evaluation for a 'lump on his right testicle'. The patient is here with his who interprets for him. The patient states that he noticed something in his testicle in February he denies any pain he discussed it with his in April who told him he should have it evaluated. The patient had a testicular ultrasound done that noted a small 1.3 cm septated cyst on the right testicle no solid mass noted. The patient denies any irritative voiding symptoms. He denies any STDs. In discussion with the patient he states that his father is being evaluated for possible prostate cancer he is unsure of the final diagnosis. I have discussed with him that prostate cancer is hereditary. Plan discussed Repeat scrotal ultrasound in 2 months, PSA screening. 04/24/23--scrotal ultrasound-1.3 cm septated right testicular cyst. No suspicious solid testicular mass. 09/20/2023 Plan: Right testicular cyst stable. Follow-up p.r.n. [facility] Medical History HTN (hypertension) Asthma Surgical History No pertinent past surgical history Family History Father No problems noted. Mother No problems noted. 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 Review of Systems Const All systems reviewed & are unremarkable except as noted in HPI and below Reports no additional complaints Eyes Reports no additional complaints ENT Reports no additional complaints Card Reports no additional complaints Resp Reports no additional complaints GI Reports no additional complaints Reports as per HPI Musc Reports no additional complaints Skin/Breast Reports system reviewed and no additional complaints, except as documented Neuro Reports no additional complaints Psych Reports no additional complaints Endo Reports no additional complaints Romel/Lymph Reports no additional complaints Aller/Immun Reports no additional complaints Results AMB Urinalysis, Automated UA Leukoctes 0 Rachel/uL Last Edit by AVE Amor on 09/20/23 10:24 UA Nitrite Negative Last Edit by AVE Amor on 09/20/23 10:24 UA Urobilinogen 0.2 mg/dL Last Edit by AVE Amor on 09/20/23 10:2 4 UA Protein 15 mg/dL Last Edit by AVE Amor on 09/20/23 10:24 UA pH 6.0 Last Edit by AVE Amor on 09/20/23 10:24 UA Blood 0 Jimmy/uL Last Edit by AVE Amor on 09/20/23 10:24 UA Specific [place] 1.025 Last Edit by AVE Amor on 09/20/23 10: 24 UA Ketone Negative Last Edit by AVE Amor on 09/20/23 10:24 UA Bilirubin 0 mg/dL Last Edit by AVE Amor on 09/20/23 10:24 UA Glucose 0 mg/dL Last Edit by AVE Amor on 09/20/23 10:24 Results Reviewed Results Reviewed: Laboratory Last Values Urine pH (Auto) 6.0 09/20/23 10:01 Specific [place] (Auto) 1.025 09/20/23 10:01 Urine Protein (Auto) 15 mg/dL 09/20/23 10:01 Glucose (UA)(Auto) 0 mg/dL 09/20/23 10:01 Urine Ketones (Auto) Negative 09/20/23 10:01 Urine Blood (Auto) 0 Jimmy/uL 09/20/23 10:01 Urine Nitrite (Auto) Negative 09/20/23 10:01 Urine Bilirubin (Auto) 0 mg/dL 09/20/23 10:01 Urine Urobilinogen (Auto) 0.2 mg/dL 09/20/23 10:01 Leukocyte Esterase (Auto) 0 Rachel/uL 09/20/23 10:01 Date of Service: 08/12/23 US SCROTUM CLINICAL INFORMATION: Benign cyst of testis. COMPARISON: Ultrasound scrotum dated 04/24/2023. TECHNIQUE: A sonogram of the scrotum was performed assessing gomez-scale appearance and color Doppler flow. Spectral Doppler analysis of the arterial and venous flow were performed in the testes bilaterally. FINDINGS: RIGHT: Right testicle measures 4.7 x 2.6 x 2.8 cm, volume 17.9 mL. No focal testicular parenchymal lesions are visualized. Spectral Doppler analysis of the arterial and venous flow is normal in the right testis. Within the right testicle, a 1.1 x 1.0 x 1.0 cm anechoic cyst is seen, with partial septation. On the comparison ultrasound examination dated 04/24/2023, this measured 1.3 x 1.0 x 0.9 cm Right epididymal head is normal in size. No right hydrocele or varicocele is seen. Right epididymal Doppler flow is normal. LEFT: Left testicle measures 4.6 x 2.8 x 2.9 cm, volume 19.5 mL. No focal testicular parenchymal lesions are visualized. Spectral Doppler analysis of the arterial and venous flow is normal in the left testis. Left epididymal head is normal in size. A 4 mm epididymal head cyst versus spermatocele is seen. No left hydrocele or varicocele is seen. Left epididymal Doppler flow is normal. IMPRESSION: 1. A stable mildly complex cyst is seen within the right testicle. 2. A 4 mm left epididymal head cyst versus spermatocele is seen. 3. There is no testicular mass or torsion. Date of Service: 04/24/23 Procedure(s): US scrotum EXAMINATION: US SCROTUM CLINICAL INFORMATION: Right testicular lump. COMPARISON: None available. TECHNIQUE: A sonogram of the scrotum was performed assessing gomez-scale appearance and color Doppler flow. Spectral Doppler analysis of the arterial and venous flow were performed in the testes bilaterally. FINDINGS: RIGHT: Right testicle measures 4.6 x 2.2 x 2.9 cm, volume 15.4 mL. A 1.3 cm septated testicular cyst. No suspicious solid testicular mass. Spectral Doppler analysis of the arterial and venous flow is normal in the right testis. Right epididymal head is normal in size. No right hydrocele or varicocele is seen. Right epididymal Doppler flow is normal. LEFT: Left testicle measures 4.8 x 2.8 x 2.9 cm, volume 20.0 mL. No focal testicular parenchymal lesions are visualized. Spectral Doppler analysis of the arterial and venous flow is normal in the left testis. Left epididymal head is normal in size. No left hydrocele or varicocele is seen. Left epididymal Doppler flow is normal. IMPRESSION: A 1.3 cm septated right testicular cyst. No suspicious solid testicular mass. Assessment & Plan Assessment & Plan (1) Testicular cyst: Code(s): N44.2 - Benign cyst of testis Category: Medical Plan Follow-up p.r.n. Orders: Orders AMB Urinalysis Automated 09/20/23 Z13.9 - Encounter for screening, unspecified Patient Instructions: The patient had an opportunity to ask questions regarding treatment plan. The p atient expressed understanding and agreement with the above treatment plan. The patient is aware they should contact our office by phone for worsening of their current condition or the appearance of new symptoms. Compliance is encouraged with any medications and followup testing that is ordered. It is a privilege to be allowed the opportunity to participate in the urologic care of your patient. If you have any questions or concerns regarding treatment for the above conditions please do not hesitate to contact me. The office telephone contact is [phone]. This note is constructed in part using voice recognition software. While every effort has been made to ensure accuracy farm mechanic errors may have been included. Yours sincerely, Cindy Coreas MD Coding Level of Care Code Est Pt Level 3 (47990) Diagnoses Testicular cyst N44.2
== END 2023-09-20 11:16 | disposition home or self-care (01) ==
PROVIDERS: PCP Family Medicine; Visit Provider Urology
DX: N44.2 Benign cyst of testis (principal)
CPT/HCPCS: 99213

== ENCOUNTER → 2023-09-20 09:55 | Outpatient (BNVA) | payer MEDICAID, SELFPAY | PROVIDERS: PCP Family Medicine; Visit Provider Urology | DX: N44.2 Benign cyst of testis (principal) | CPT/HCPCS: 81003; 99212 ==

== ENCOUNTER 2023-11-06 10:58 | Outpatient (REF) | payer MEDICAID, SELFPAY ==
--- NOTE | ~2023-11-06 | XR_ITS ---
EXAMINATION: XR ELBOW, RIGHT CLINICAL INFORMATION: Right elbow pain for 2 weeks COMPARISON: None available. TECHNIQUE: AP, lateral, and oblique views of the right elbow. FINDINGS: The bones and soft tissues are normal. No fracture or joint effusion. Alignment is anatomic. Joint spaces are maintained. XR/XR elbow RT min 3V IMPRESSION: Normal right elbow.
== END 2023-11-06 10:59 | disposition home or self-care (01) ==
LOC: HO.HHCX 10:58
PROVIDERS: Visit Provider Family Medicine
DX: M25.521 Pain in right elbow (principal)
CPT/HCPCS: 73080

== ENCOUNTER 2024-01-20 20:49 | Emergency (ER) | payer MEDICAID, SELFPAY ==
--- NOTE | ~2024-01-20 | XR_ITS ---
EXAMINATION: XR CHEST CLINICAL INFORMATION: Shortness of breath COMPARISON: None available. TECHNIQUE: 2 views of the chest were obtained. FINDINGS: No significant abnormality is noted involving the heart, lungs, mediastinum, bony thorax or soft tissues. XR/XR chest 2V IMPRESSION: Unremarkable examination. Electronically signed by: Parvez Pope DO 01/20/2024 09:53 PM EDT
[2024-01-20 21:18] VITALS: BP 158/101; PULSE 82; RESP 18; TEMP 36.7; O2SAT 96; BMI 36.6
--- NOTE | 2024-01-20 21:20 | ED_ITS ---
HPI - General Adult General Chief complaint: Upper Respiratory Symptoms Stated complaint: nasal congestion Time Seen by Provider: 01/21/24 02:45 Source: patient Mode of arrival: ambulatory History of Present Illness ED Provider: [email or web address] AVERY narrative: Nasal congestion for last 2 days body aches positive COVID on arrival no fever no chills no shortness a breath no significant cough Related Data Home Medications ?Medication ?Instructions ?Recorded ?Confirmed acetaminophen 500 mg tablet 1,000 mg PO Q6H PRN fever 01/09/22 09/21/23 albuterol sulfate 90 mcg/actuation 2 puff inhalation Q4-6H PRN 01/09/22 09/21/23 aerosol inhaler (ProAir HFA) atorvastatin 20 mg tablet 20 mg PO BEDTIME 01/09/22 09/21/23 cholecalciferol (vitamin D3) 50 50 mcg PO DAILY 01/09/22 09/21/23 mcg (2,000 unit) tablet diclofenac sodium 1 % topical gel 2 g topical BID PRN pain 01/09/22 09/21/23 fenofibrate 160 mg tablet 160 mg PO DAILY 01/09/22 09/21/23 gabapentin 300 mg capsule 300 mg PO TID 01/09/22 09/21/23 hydrochlorothiazide 25 mg tablet 25 mg PO DAILY 01/09/22 09/21/23 lisinopril 20 mg tablet 20 mg PO DAILY 01/09/22 09/21/23 loratadine 10 mg tablet 10 mg PO DAILY 01/09/22 09/21/23 naproxen 500 mg tablet 500 mg PO BID PRN pain 01/09/22 09/21/23 omega-3 fatty acids-fish oil 340 1 cap PO BID 01/09/22 09/21/23 mg-1,000 mg capsule (Fish Oil) omeprazole 20 mg capsule,delayed 20 mg PO QAM 01/09/22 09/21/23 release triamcinolone acetonide 55 mcg 2 spray intranasal DAILY 01/09/22 09/21/23 nasal spray aerosol zolpidem 10 mg tablet 10 mg PO BEDTIME PRN insomnia 01/09/22 09/21/23 Allergies Allergy/AdvReac Type Severity Reaction Status Date / Time No Known Allergies Allergy Verified 01/20/24 21:20 Review of Systems Review of Systems: Yes all other systems are reviewed and are negative PMFSH Past Medical History Medical History HTN (hypertension) Asthma Surgical History No pertinent past surgical history Family History Family History Father No problems noted. Mother No problems noted. 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 Oriented X3. No acute distress. Eyes: PERRLA, No Nystagmus ENT: Pharynx normal. Oral Mucosa moist nasal congestion++ Neck: Normal inspection. Neck supple. CVS: Normal heart rate and rhythm. Pulses normal. Respiratory: No respiratory distress. Equal air entry bilateral, no wheezing/rales/rhonchi Abdomen: Soft and nontender. Bowel sounds are present, no mass palpable, no CVA tenderness Skin: Skin warm and dry. Normal skin color. Normal skin turgor. Extremities: No lower extremity edema. No calf tenderness Neuro: Oriented X 3. No motor deficit. No sensory deficit.No cerebellar signs , cranial nerves II-XII intact Course Course Course Narrative: This is an RME: Additional HPI, ROS, PE not included below will be deferred to primary provider. RME assessment and note performed by: Oumou Sullivan PA-C This is a 43-year-old male who presents emergency department with complaints of congestion, dry cough since yesterday. Reports history of asthma. Using inhalers without any relief. No CP. Plan: Viral swabs Medical Decision Making Medical Decision Making [facility] Narrative: Patient with uncomplicated COVID-19 chest x-ray negative saturating 97% on room air discharge patient home advised supportive treatment Lab Data [facility] Lab Attestation statement: I reviewed the patient's lab results. Labs: Lab Results 01/20/24 Range/Units 21:53 Influenza Type A (PCR) NEGATIVE (Negative) Influenza Type B (PCR) NEGATIVE (Negative) RSV RNA Qual (PCR) NEGATIVE (Negative) SARS-CoV-2 RNA (RT-PCR) POSITIVE A (Negative) Independent Interpretation I performed an independent interpretation of an: Plain X-Ray Radiology Impression Discussion of test interpretation with radiology: I have reviewed the radiologist's reading. Discharge Plan Discharge Clinical Impression: COVID-19 Patient Disposition: Home, Self-Care Instructions: COVID-19 (Coronavirus Disease 2019) (ED) Additional Instructions: Social distancing as advised Tylenol/Motrin for body aches Prescriptions: No Action cholecalciferol (vitamin D3) 50 mcg (2,000 unit) tablet 50 mcg PO DAILY diclofenac sodium 1 % gel 2 g topical BID PRN (Reason: pain) fenofibrate 160 mg tablet 160 mg PO DAILY naproxen 500 mg tablet 500 mg PO BID PRN (Reason: pain) loratadine 10 mg tablet 10 mg PO DAILY hydrochlorothiazide 25 mg tablet 25 mg PO DAILY omeprazole 20 mg capsule,delayed release(DR/EC) 20 mg PO QAM gabapentin 300 mg capsule 300 mg PO TID triamcinolone acetonide 55 mcg aerosol,spray 2 spray intranasal DAILY lisinopril 20 mg tablet 20 mg PO DAILY atorvastatin 20 mg tablet 20 mg PO BEDTIME zolpidem 10 mg tablet 10 mg PO BEDTIME PRN (Reason: insomnia) albuterol sulfate [ProAir HFA] 90 mcg/actuation HFA aerosol inhaler 2 puff inhalation Q4-6H PRN Fish Oil 340-1,000 mg capsule 1 cap PO BID acetaminophen 500 mg tablet 1,000 mg PO Q6H PRN (Reason: fever) Stand Alone Forms: Work/School Release Interventions: ED Discharge Assessment Last Done: 01/21/24 03:06 Discharge Date/Time: 01/21/24 03:06 Print Language: Palauan
[2024-01-20 22:38] LABS: Influenza A PCR NEGATIVE (Negative); Influenza B PCR NEGATIVE (Negative); Resp Syncy Virus RNA Qual PCR NEGATIVE (Negative); SARS COV2 PCR INHOUSE POSITIVE (Negative)
[2024-01-21 02:16] VITALS: BP 178/101; PULSE 89; RESP 16; TEMP 36.5; O2SAT 97
[2024-01-21 03:06] VITALS: BP 178/101; PULSE 89; RESP 16; TEMP 36.5; O2SAT 97
== END 2024-01-21 03:06 | disposition home or self-care (01) ==
PROVIDERS: Physician Assistant Medical; Emergency Provider Internal Medicine; PCP Family Medicine
DX: U07.1 COVID-19 (principal)
CPT/HCPCS: 0241U; 71046; 99282; 99283

== ENCOUNTER 2024-05-20 14:51 | Outpatient (REF) | payer MEDICAID, SELFPAY ==
--- NOTE | ~2024-05-20 | XR_ITS ---
EXAMINATION: XR SHOULDER 2 OR MORE VIEWS LEFT HISTORY: worsening L shoulder pain COMPARISON: There are no prior studies available for comparison. FINDINGS: Three views of the left shoulder are submitted. Osseous mineralization is normal. There is no fracture or dislocation. The joint spaces are preserved. The soft tissues are unremarkable. XR/XR shoulder LT min 2V IMPRESSION: Unremarkable examination of the left shoulder. Electronically signed by: Russ Mayberry MD 05/20/2024 03:34 PM NAVJOT
== END 2024-05-20 14:52 | disposition home or self-care (01) ==
LOC: HO.HHCX 14:51
PROVIDERS: Visit Provider Family Medicine
DX: M25.512 Pain in left shoulder (principal); G89.29 Other chronic pain
CPT/HCPCS: 73030

== ENCOUNTER → 2024-05-20 14:52 | Outpatient (BNV) | payer MEDICAID, SELFPAY | PROVIDERS: Visit Provider Radiology Diagnostic Radiology | DX: M25.512 Pain in left shoulder (principal) | CPT/HCPCS: 73030 ==

== ENCOUNTER 2024-05-29 08:41 | Outpatient (REF) | payer MEDICAID, SELFPAY ==
[2024-05-29 11:41] LABS: Hemoglobin 16.7 g/dl (14.0-18.0); Mean Corpuscular HGB Conc 34.8 g/dl (31.0-36.0); Mean Corpuscular Hemoglobin 29.7 pg (27.0-33.0); Mean Corpuscular Volume 85.3 fL (80.0-98.0); Mean Platelet Volume 9.8 fL (9.4-12.4); Platelet Count 225 X10*3/uL (160-400); Red Blood Count 5.63 X10*6/uL (4.60-5.80); Red Cell Distribution Width 12.2 % (11.0-16.0); White Blood Count 7.5 X10*3/uL (4.8-10.8)
[2024-05-29 11:49] LABS: Estimated Average Glucose 114 mg/dL; Hemoglobin A1C 161.4133 umol/L; Hemoglobin A1c % 5.6 % (<6.0); Total Hemoglobin (HGBA1C) 4274.8674 umol/L
[2024-05-29 11:55] LABS: Creatinine Urine 232.73 mg/dL; Microalbum/Creatinine Ratio Ur 8.1 ug/mg cr (<30)
[2024-05-29 12:12] LABS: HIV AB/AG Nonreactive (Nonreactive); HIV Num 1 0.05 S/CO (0.00-0.99); PSA,Total (Free>4and<10) 0.46 ng/mL (0.00-4.00); ~HepC Num1 0.08 S/CO (0.00-0.79); ~Hepatitis C Antibody Nonreactive (Nonreactive)
[2024-05-29 12:13] LABS: Alanine Aminotransferase 71 U/L (0-40); Albumin Level 4.2 g/dL (3.5-5.0); Alkaline Phosphatase 65 U/L (39-117); Anion Gap 10 (12-20); Aspartate Amino Transferase 43 U/L (5-37); Bilirubin Direct 0.5 mg/dL (0.0-0.5); Bilirubin Total 1.7 mg/dL (0.0-1.0); Blood Urea Nitrogen 16 mg/dL (9-16); Calcium 8.5 mg/dL (8.4-10.2); Carbon Dioxide 25 mmol/L (22-29); Chloride 107 mmol/L (96-108); Cholesterol 141 mg/dL (<200); Estimated Glomerular Filt Rate > 60; Free T4 (Free Thyroxine) 0.96 ng/dL (0.71-1.85); Glucose Random 129 mg/dL (60-115); HDL Cholesterol 34 mg/dL (>40); LDL Cholesterol Calculated 71 mg/dL (<100); Sodium 138 mmol/L (135-145); Thyroid Stimulating Hormone 1.77 uIU/mL (0.32-4.0); Total Protein 8.1 g/dL (6.5-8.0); Triglycerides 180 mg/dL (<150); Vitamin D 25-OH Total 19.6 ng/mL (>30)
[2024-05-29 13:16] LABS: CT PCR NOT DETECTED (Not Detect.); NG PCR NOT DETECTED (Not Detect.)
[2024-06-01 09:43] LABS: RPR Rapid Plasma Reagin NON-REACTIVE (NON-REACTIVE)
[2024-06-01 14:04] LABS: Alpha Fetoprotein 1.3 ng/mL (<6.1)
== END 2024-05-29 08:42 | disposition home or self-care (01) ==
LOC: HO.HHCL 08:41
PROVIDERS: Urology; Visit Provider Family Medicine
DX: Z00.00 Encounter for general adult medical examination without abnormal findings (principal); Z12.5 Encounter for screening for malignant neoplasm of prostate; I10 Essential (primary) hypertension; E78.5 Hyperlipidemia, unspecified; K76.0 Fatty (change of) liver, not elsewhere classified; J30.9 Allergic rhinitis, unspecified; J45.20 Mild intermittent asthma, uncomplicated; K21.9 Gastro-esophageal reflux disease without esophagitis; M54.50 Low back pain, unspecified; G89.29 Other chronic pain; M65.339 Trigger finger, unspecified middle finger; G47.33 Obstructive sleep apnea (adult) (pediatric); N50.89 Other specified disorders of the male genital organs; M25.521 Pain in right elbow; H00.012 Hordeolum externum right lower eyelid; J32.0 Chronic maxillary sinusitis
CPT/HCPCS: 36415; 80048; 80061; 80076; 82043; 82105; 82306; 82570; 83036; 84153; 84439; 84443; 85027; 86592; 86803; 87389; 87491; 87591

== ENCOUNTER → 2024-06-08 20:30 | Outpatient (REF) | payer MEDICAID, SELFPAY ==
--- OUTSIDE RECORDS SUMMARY | 2024-06-08 21:58 | XMS_ITS | Encounter Summary ---
Author Organization [employer] Address [address] [place] [address] [address] [place] [address] Care Team Providers Care Epoxy Specialist Name Role Phone PipeJazlyn narayanan Primary Care Provider + [phone] Encounter Details Date Type Department Care Team (Latest Contact Info) Description 05/20/2024 Travel Social History Tobacco Use Types Packs/Day Years Used Date Smoking Tobacco: Never Passive Smoke Exposure: Never Smokeless Tobacco: Never Alcohol Use Standard Drinks/Week Comments Never 0 (1 standard drink = 0.6 oz pur e alcohol) Depression Answer Date Recorded Patient Health Questionnaire-9 Score 0 11/06/2023 Patient Health Questionnaire-9 Score 0 11/06/2023 Last PHQ-9: Questionnaire Data Not on file 0 11/06/2023 Housing Stability Answer Date Recorded What is your housing situation today? I have rohan duncan 10/28/[address] you li ve. Do you have problems with any of the following? None of the above 10/28/2023 Food Insecurity Answer Date Recorded Within the past 12 months, y ou worried that your food would run out before you got money to buy more: Never True 10/28/2023 Within the past 12 months,th e food you bought just didn't last and you didn't have enough money to get more: Never True Transportation Answer Date Recorded In the past 12 months, has l ack of transportation kept you from medical appts, meetings, work or from getting things needed for daily living? No 10/28/2023 Utilities Answer Date Recorded In the past 12 months, has t he electric, gas, oil or water company threatened to shut off services in your home? No 10/28/2023 Depression Answer Date Recorded Patient Health Questionnaire-2 Score 0 11/06/2023 Internet Access Answer Date Recorded Internet Access Q1 Yes 01/13/2024 Internet Access Q2 Not on file 01/13/2024 Sex and Gender Information Value Date Recorded Sex Assigned at Male 03/12/2022 10:18 AM EDT Legal Sex Male 10:18 AM EDT Gender Identity Male 03/12/2022 10:18 AM EDT Sexual Orientation Straight 03/12/2022 10 :18 AM EDT documented as of this encounter Plan of Treatment Not on file documented as of this encounter Visit Diagnoses Not on filedocumented in this encounter Additional Health Concerns Assessment Noted Time PHQ-9 Depression Total Score: 0 11/06/19 24 9:54 AM EDT documented as of this encounter Care Teams Epoxy Specialist Relationship Specialty Start Date End Date Jazlyn Gagnon DO [address] [place] [id number] PCP - General Family Medicine 05/13/18 documented as of this encounter
--- OUTSIDE RECORDS SUMMARY | 2024-06-08 21:58 | XMS_ITS | Encounter Summary ---
Author Organization [employer] Address [address] [place] [address] [address] [place] [address] Care Team Providers Care Line Cook Name Role Phone Jazlyn Gagnon DO Primary Care Provider [phone] Encounter Details Date Type Department Care Team ([facility] st Contact Info) Description 07/20/2022 Orders Only [facility] [address] [place] [address] Jazlyn Serrano LPN Social History Tobacco Use Types Packs/Day Years Used Date Smoking Tobacco: Never Passive Smoke Exposure: Never Smokeless Tobacco: Never Alcohol Use Standard Drinks/Week Comments Never 0 (1 standard drink = 0.6 oz pur e alcohol) Sex and Gender Information Value Date Recorded Sex Assigned at Male 03/12/2022 10:18 AM EDT Legal Sex Male 10:18 AM EDT Gender Identity Male 03/12/2022 10:18 AM EDT Sexual Orientation Straight 03/12/2022 10 :18 AM EDT documented as of this encounter Plan of Treatment Not on file documented as of this encounter Visit Diagnoses Not on filedocumented in this encounter Care Teams Line Cook Relationship Specialty Start Date End Date Jazlyn Gagnon DO [address] [place] [address] PCP - General Family Medicine 05/13/18 documented as of this encounter
--- OUTSIDE RECORDS SUMMARY | 2024-06-08 21:58 | XMS_ITS | Encounter Summary ---
Author Organization [employer] Address [address] [facility] [place] [address] Care Team Providers Care Excellence Consultant Name Role Phone Jazlyn Gagnon DO Primary Care Provider + [phone] Reason for Visit * Reason Onset Date Comments Med Refill 05/14/2024 Encounter Details Date Type Department Care Team ([facility] st Contact Info) Description 05/14/[address] [facility] [address] [place] [address] Jalzyn Gagnon DO [address] [facility] [place] [address] Other insomnia Social History Tobacco Use Types Packs/Day Years [...] AM EDT documented as of this encounter Miscellaneous Notes * Telephone Encounter - Jazlyn Serrano LPN - 05/14/2024 2:11 PM EST PCP off. PASTE MIXING SUPERVISOR checked 05/14/24. Last seen 11/06/23. documented in this encounter Plan of Treatment Not on file documented as of this encounter Visit Diagnoses Diagnosis Other insomnia documented in this encounter Additional Health Concerns Assessment Noted Time PHQ-9 Depression Total Score: 0 11/06/19 9:54 AM EDT documented as of this encounter Care Teams Excellence Consultant Relationship Specialty Start Date End Date Jazlyn Gagnon DO [address] [place] [id number] PCP - General Family Medicine 05/13/18 documented as of this encounter
--- OUTSIDE RECORDS SUMMARY | 2024-06-08 21:58 | XMS_ITS | Encounter Summary ---
Author Organization [employer] Address [address] [place] [address] [address] [place] [address] Care Team Providers Care Senior Network Systems Engineer Name Role Phone Jazlyn Gagnon DO Primary Care Provider + [phone] Reason for Visit * Reason Comments Pre-visit Planning SDOH screening is co mpleted Encounter Details Date Type Department Care Team ([facility] st Contact Info) Description 05/12/2024 Patient Outreach [facility] [address] [place] [address] Jazlyn Gagnon DO [address] [place] [address] Pre-visit Planning (SDOH screening is completed) Social History Tobacco Use Types Packs/Day Years [...] AM EDT documented as of this encounter Progress Notes * Jones eFrrell - 05/12/2024 12:42 PM EST CC Jones an successful outbound call to patient for pre-visit planning. Patient name and confirmed. Patient confirms appt date and time, and has transportation arrangements. Biggest concern for appointment at this time is no concern. Appropriate screenings completed in anticipation of appointment. SDOH screening is completed. documented in this encounter Plan of Treatment Not on file documented as of this encounter Visit Diagnoses Not on filedocumented in this encounter Additional Health Concerns Assessment Noted Time PHQ-9 Depression Total Score: 0 11/06/19 24 9:54 AM EDT documented as of this encounter Care Teams Senior Network Systems Engineer Relationship Specialty Start Date End Date Jazlyn Gagnon DO [address] [place] [address] PCP - General Family Medicine 05/13/18 documented as of this encounter
--- OUTSIDE RECORDS SUMMARY | 2024-06-08 21:58 | XMS_ITS | Clinical Summary ---
Author Organization [employer] Address [address] [place] [address] [address] [place] [address] Care Team Providers Care Director Of Corporate Real Estate Name Role Phone ChelsiJazlyn Primary Care Provider + [phone] Allergies No known active allergies Medications cholecalciferol (Vitamin D-3) 50 MCG (1999) tabletIndications:V itamin D deficiency TAKE 1 TABLET BY MOUTH EVERY DAY 90 tablet 3 023 Active gabapentin (Neurontin) 300 MG capsuleIndications: Other chronic pain TAKE 1 CAPSULE BY MOUTH THREE TIMES DAILY 90 capsule 5 023 Active naproxen (Naprosyn) 500 MG tablet TAKE 1 TABLET BY MOUTH TWICE DAILY WITH FOOD NEEDED FOR PAIN 40 tablet 2 024 Active baclofen (Lioresal) 10 MG tablet TAKE 1 TABLET BY MOUTH THREE TIMES DAILY NEEDED FOR MUSCLE SPASMS 60 tablet 2 024 Active lisinopril 20 MG tabletIndications:E ssential hypertension TAKE 1 TABLET BY MOUTH EVERY DAY 90 tablet 3 024 Active atorvastatin (Lipitor) 20 MG tabletIndications:O ther hyperlipidemia TAKE 1 TABLET BY MOUTH AT BEDTIME 90 tablet 3 024 Active omeprazole (PriLOSEC) [address] capsuleIndications: Chronic gastroesophageal reflux disease TAKE 1 CAPSULE BY MOUTH BEFORE BREAKFAST 90 capsule 3 024 Active hydroCHLOROthiazide (HYDRODiuril) 25 MG tabletIndications:E ssential hypertension TAKE 1 TABLET BY MOUTH EVERY DAY 90 tablet 3 024 Active triamcinolone (Nasacort) 55 MCG/ACT nasal inhalerIndications: Seasonal allergic rhinitis, unspecified trigger Administer 2 sprays into each nostril Once per day. 16.9 mL 11 Active Diclofenac Sodium 1 % gelIndications:Pain Apply 2 g topically if needed in the morning, at noon, in the evening, and at bedtime (pain). 150 g Active fenofibrate (Triglide) 160 MG tabletIndications:O ther hyperlipidemia TAKE 1 TABLET BY MOUTH EVERY DAY 90 tablet Active zolpidem (Ambien) 10 MG tabletIndications:O ther insomnia TAKE 1 TABLET BY MOUTH AT BEDTIME NEEDED 30 tablet Active fexofenadine (Neelima) 180 MG tablet Take 1 tablet (180 mg) by mouth Once per day. 90 tablet 3 2025 Active cholecalciferol (Vitamin D-3) 50 MCG (1999) capsule Take 1 capsule (50 mcg) by mouth Once per day. 90 capsule 2025 Active cetirizine (ZyrTEC) 10 MG tablet Take 1 tablet (10 mg) by mouth Once per day. 90 tablet 3 024 2024 Discontinued(I neffective) zolpidem (Ambien) 10 MG tabletIndications:O ther insomnia TAKE 1 TABLET BY MOUTH AT BEDTIME NEEDED 30 tablet 2024 Discontinued(R eorder (will not trigger notification to Pharmacy)) predniSONE (Deltasone) 20 MG tablet Take 1 tablet (20 mg) by mouth 2 times daily for 5 days. 10 tablet 025 2024 amoxicillin-clavula fabiola (Augmentin) 875-125 MG tablet Take 1 tablet by mouth 2 times daily for 7 days. 14 tablet 025 2024 Active Problems Problem Noted Date Diagnosed Date Dyslipidemia 03/20/2023 Chronic low back pain 03/20/2023 Allergic rhinitis 03/20/2023 Carpal tunnel syndrome 05/02/2015 Chronic gastroesophageal reflux disease 05/02/20 15 Insomnia 05/02/2015 Mild intermittent asthma 05/02/2015 BMI 40.0-44.9, adult 05/02/2015 Fatty liver 05/02/2015 Encounters Date Type Department Care Team Description 06/05/2024 Refill [facility] [address] [place] [phone] Estela Santo RN 05/29/2024 Orders Only GENERIC EXTERNAL DATA DEPARTMENT Provider, Generic External Data 05/20/2024 11:00 AM EST Office Visit [facility] [address] [place] [phone] Jazlyn Gagnon DO Essential hypertension (Primary Dx); Dyslipidemia; Fatty liver; Chronic allergic rhinitis; Mild intermittent asthma without complication; Chronic gastroesophageal reflux disease; Chronic bilateral low back pain without sciatica; MARIO (obstructive sleep apnea); Testicular lump; Right elbow pain; Chronic left shoulder pain; Chronic maxillary sinusitis; Healthcare maintenance; Encounter for immunization 05/20/2024 Travel 05/14/2024 Refill [facility] [address] [place] [address] Jazlyn Gagnon DO Other insomnia 05/12/2024 Patient Outreach [facility] [address] [place] [phone] Jazlyn Gagnon DO Pre-visit Planning (SDOH screening is completed) 05/05/2024 Patient Outreach [facility] [address] [place] [address] Jazlyn Gagnon DO Pre-visit Planning (SDOH unable to reach LVM) 04/30/2024 Patient Outreach [facility] [address] [place] [phone] Jazlyn Gagnon DO Pre-visit Planning (SDOH screening completed on 10/28/2023) 04/21/2024 Telephone [facility] [address] [place] [phone] Royer Salguero [place] May recall 04/08/2024 Refill [facility] [address] [place] [address] Jazlyn Gagnon DO Other insomnia 03/11/[address] [phone] Leslie Ferrell [place] RECALL from Last 3 Months Immunizations Name Administration Dates Next Due Hep A / Hep B 07/13/2010,03/20/2010 Hep B, adult 05/18/2010 Influenza injectable quadriv alent preservative free 03/13/2022,07/17/2019,05/02/2015 Influenza, Split (incl. sophy fied surface antigen) 07/23/2013,05/30/2012 Influenza, seasonal, injecta ble, preservative free 05/20/2024 Pfizer Covid-19 Vaccine 12+ 05/20/2024 Pfizer Covid-19 Vaccine 12+ Bivalent 05/25/2022 Pneumococcal Conjugate PCV 20 05/20/2024 Pneumococcal Polysaccharide PPSV23 05/02/2015 Tdap 10/16/2021,04/01/2009 Social History Tobacco Use Types Packs/Day Years Used Date Smoking Tobacco: Never Passive Smoke Exposure: Never Smokeless Tobacco: Never Tobacco Cessation:Counseling Given: Not Answered Alcohol Use Standard Drinks/Week Comments Never 0 [...] Orientation Straight 03/12/2022 10 :18 AM EDT Last Filed Vital Signs Vital Sign Reading Time Taken Comments Blood Pressure 144/90 05/20/2024 11:33 AM EST Pulse 88 05/20/2024 11:33 AM EST Temperature 36.3 ??C (97.3 ??F) 05/20/2024 11:[address] Respiratory Rate 19 05/20/2024 11:33 AM EST Oxygen Saturation 98% 11/06/2023 9:54 AM EDT Inhaled Oxygen Concentration - - Weight 124 kg (273 lb) 05/20/2024 11:33 AM EST Height 170.2 cm (5' 7 ) 05/20/2024 11:33 AM EST Body Mass Index 42.76 05/20/2024 11:33 AM EST Plan of Treatment Health Maintenance Due Date Last Done Comments CT Colonography 1979 FIT DNA/Cologuard 1979 FIT 1979 FOBT 1979 Sigmoidoscopy 1979 Family Planning (PISQ) 1994 Hepatitis A Vaccines (3 of 3 - Hep A Twinrix risk 3-dose series) 12/13/2010 07/13/2010, 03/20/2010 Colonoscopy 02/11/2023 02/11/2013 Colorectal Cancer Screening 02/11/2023 SDOH Screening 10/27/2024 10/28/2023 Depression Screening 11/05/2024 11/06/2023, 11/06/19 24 Alcohol/Substance Use Screening 05/20/2025 05/20/2024 Tobacco Screening 05/20/2025 05/20/2024 Zoster Vaccines (1 of 2) 2029 Lipid Panel 05/29/2029 05/29/2024, 11/0 12/2022, 10/16/2021, Additional history exists DTaP/Tdap/Td Vaccines (3 - Td or Tdap) 10/17/2031 10/16/2021, 04/01/2009 RSV Patients and Patients Aged 60 years or older (1 - 1-dose 75+ series) 2054 Hepatitis B Vaccines Completed 07/13/2010, 05/18/2010, 03/20/2010 COVID-19 Vaccine Completed 05/20/2024, , 06/22/2021, Additional history exists Influenza Vaccine Completed 05/20/2024, , 07/17/2019, Additional history exists Pneumococcal Vaccine: Pediatrics (0 to 5 Years) and At-Risk Patients (6 to 64 Years) Completed 05/20/2024, 05/02/2015 HIV Screening Completed 05/29/2024, 12/2022, 06/23/2021, Additional history exists Hepatitis C Screening Completed 05/29/2024 , 03/20/2023, 06/23/2021 HIB Vaccines Aged Out No longer eligi ble based on patient's age to complete this topic HPV Vaccines Aged Out No longer eligi ble based on patient's age to complete this topic IPV Vaccines Aged Out No longer eligi ble based on patient's age to complete this topic Meningococcal Vaccine Aged Out No keegan danita eligible based on patient's age to complete this topic RSV under 20 months Aged Out No longe r eligible based on patient's age to complete this topic Rotavirus Vaccines Aged Out No longer eligible based on patient's age to complete this topic Procedures Procedure Name Priority Date/Time Associated Diagnosis Comments PSA, TOTAL WITH REFLEX TO PSA, FREE Routine 05/29/2024 8:47 AM EST ALPHA FETOPROTEIN, TUMOR MARKER Routine 05/29/2024 8:47 AM EST Essential hypertension Dyslipidemia Fatty liver Chronic allergic rhinitis Mild intermittent asthma without complication Chronic gastroesophageal reflux disease Chronic bilateral low back pain without sciatica MARIO (obstructive sleep apnea) Testicular lump Right elbow pain Chronic left shoulder pain Chronic maxillary sinusitis Healthcare maintenance RPR (MONITOR) W/REFL TITER Routine 05/29/2024 8:47 AM EST Essential hypertension Dyslipidemia Fatty liver Chronic allergic rhinitis Mild intermittent asthma without complication Chronic gastroesophageal reflux disease Chronic bilateral low back pain without sciatica MARIO (obstructive sleep apnea) Testicular lump Right elbow pain Chronic left shoulder pain Chronic maxillary sinusitis Healthcare maintenance HEPATITIS C AB W/REFL TO HCV RNA, QN, PCR Routine 05/29/2024 8:47 AM EST Essential hypertension Dyslipidemia Fatty liver Chronic allergic rhinitis Mild intermittent asthma without complication Chronic gastroesophageal reflux disease Chronic bilateral low back pain without sciatica MARIO (obstructive sleep apnea) Testicular lump Right elbow pain Chronic left shoulder pain Chronic maxillary sinusitis Healthcare maintenance HIV 1/2 ANTIGEN/ANTIBODY, FOURTH GENERATION W/RFL Routine 05/29/2024 8:47 AM EST Essential hypertension Dyslipidemia Fatty liver Chronic allergic rhinitis Mild intermittent asthma without complication Chronic gastroesophageal reflux disease Chronic bilateral low back pain without sciatica MARIO (obstructive sleep apnea) Testicular lump Right elbow pain Chronic left shoulder pain Chronic maxillary sinusitis Healthcare maintenance ALBUMIN, RANDOM URINE W/CREATININE Routine 05/29/2024 8:47 AM EST Essential hypertension Dyslipidemia Fatty liver Chronic allergic rhinitis Mild intermittent asthma without complication Chronic gastroesophageal reflux disease Chronic bilateral low back pain without sciatica MARIO (obstructive sleep apnea) Testicular lump Right elbow pain Chronic left shoulder pain Chronic maxillary sinusitis Healthcare maintenance CBC Routine 05/29/2024 8:47 AM EST Essential hypertension Dyslipidemia Fatty liver Chronic allergic rhinitis Mild intermittent asthma without complication Chronic gastroesophageal reflux disease Chronic bilateral low back pain without sciatica MARIO (obstructive sleep apnea) Testicular lump Right elbow pain Chronic left shoulder pain Chronic maxillary sinusitis Healthcare maintenance BASIC METABOLIC PANEL Routine 05/29/2024 8:47 AM EST Essential hypertension Dyslipidemia Fatty liver Chronic allergic rhinitis Mild intermittent asthma without complication Chronic gastroesophageal reflux disease Chronic bilateral low back pain without sciatica MARIO (obstructive sleep apnea) Testicular lump Right elbow pain Chronic left shoulder pain Chronic maxillary sinusitis Healthcare maintenance HEMOGLOBIN A1C Routine 05/29/2024 8:47 AM EST Essential hypertension Dyslipidemia Fatty liver Chronic allergic rhinitis Mild intermittent asthma without complication Chronic gastroesophageal reflux disease Chronic bilateral low back pain without sciatica MARIO (obstructive sleep apnea) Testicular lump Right elbow pain Chronic left shoulder pain Chronic maxillary sinusitis Healthcare maintenance HEPATIC FUNCTION PANEL Routine 05/29/2024 8:47 AM EST Essential hypertension Dyslipidemia Fatty liver Chronic allergic rhinitis Mild intermittent asthma without complication Chronic gastroesophageal reflux disease Chronic bilateral low back pain without sciatica MARIO (obstructive sleep apnea) Testicular lump Right elbow pain Chronic left shoulder pain Chronic maxillary sinusitis Healthcare maintenance TSH Routine 05/29/2024 8:47 AM EST Essential hypertension Dyslipidemia Fatty liver Chronic allergic rhinitis Mild intermittent asthma without complication Chronic gastroesophageal reflux disease Chronic bilateral low back pain without sciatica MARIO (obstructive sleep apnea) Testicular lump Right elbow pain Chronic left shoulder pain Chronic maxillary sinusitis Healthcare maintenance LIPID PANEL, STANDARD Routine 05/29/2024 8:47 AM EST Essential hypertension Dyslipidemia Fatty liver Chronic allergic rhinitis Mild intermittent asthma without complication Chronic gastroesophageal reflux disease Chronic bilateral low back pain without sciatica MARIO (obstructive sleep apnea) Testicular lump Right elbow pain Chronic left shoulder pain Chronic maxillary sinusitis Healthcare maintenance VITAMIN D,25-OH,TOTAL,IA Routine 05/29/2024 8:47 AM EST Essential hypertension Dyslipidemia Fatty liver Chronic allergic rhinitis Mild intermittent asthma without complication Chronic gastroesophageal reflux disease Chronic bilateral low back pain without sciatica MARIO (obstructive sleep apnea) Testicular lump Right elbow pain Chronic left shoulder pain Chronic maxillary sinusitis Healthcare maintenance T4, FREE Routine 05/29/2024 8:47 AM EST Essential hypertension Dyslipidemia Fatty liver Chronic allergic rhinitis Mild intermittent asthma without complication Chronic gastroesophageal reflux disease Chronic bilateral low back pain without sciatica MARIO (obstructive sleep apnea) Testicular lump Right elbow pain Chronic left shoulder pain Chronic maxillary sinusitis Healthcare maintenance CHLAMYDIA/N. GONORRHOEAE RNA, TMA, UROGENITAL Routine 05/29/2024 8:47 AM EST Essential hypertension Dyslipidemia Fatty liver Chronic allergic rhinitis Mild intermittent asthma without complication Chronic gastroesophageal reflux disease Chronic bilateral low back pain without sciatica MARIO (obstructive sleep apnea) Testicular lump Right elbow pain Chronic left shoulder pain Chronic maxillary sinusitis Healthcare maintenance XR SHOULDER 2+ VIEWS LEFT Routine 05/20/2024 2:52 PM EST Chronic left shoulder pain HM COLONOSCOPY Routine 02/11/2013 1:36 PM EDT from Last 3 Months or Most Recently Relevant to Health Maintenance Results * (ABNORMAL) Vitamin D, 25-Hydroxy, Total, Immunoassay (05/29/2024 8:47 AM EST) Vitamin D 25-OH Total 19.6(L) >30 ng/mL [facility] Comment:Health Based Referen ce Values*< 20 ng/mL Vxklizeyg27-30 ng/mL Insufficient> 30 ng/mL Sufficient*Candi VALENTIN. N Engl J Med. 2007;357:266-280Care must be taken in interpreting Vitamin D results fromdifferent laboratories and methodologies. Published datademonstrated that results from patients undergoinghemodialysis may show a negative bias when tested withvarious automated 25-OH vitamin D assays when compared toLC-MS/MS.When testing samples from patients whose predominant form ofVitamin D is Vitamin D2, such as patients receiving VitaminD2 supplementation, results that are subtherapeutic shouldbe confirmed with another method such as LC-MS/MS. Blood Venous blood specimen / Unknown 05/29/2024 8:47 AM EST 05/29/2024 11:30 AM EST Jazlyn Gagnon DO LAB BLOOD ORDERABLES Final R esult [facility] [address] [place] [address] [phone] * PSA, Total With Reflex to PSA, Free (05/29/2024 8:47 AM EST) PSA,Total (Free>4and<10) 0.46 0.00 - 4.00 ng/mL [facility] Comment:A Free PSA was not p erformed: The percentage of Free PSA can be used to enhance the differentiation of prostate cancer from benign prostatic disease in subjects whose PSA levels are between 4.0 and 10.0 ng/mL. For subjects whose PSA levels are below 4.0 or above 10.0 ng/mL, the risk of prostate cancer is determined on the basis of the PSA alone. Therefore the % Free PSA is recommended only for those subjects whose PSA levels are between 4.0 and 10.0 ng/mL.PSA methodology: [employer] ChemiluminescentMicroparticle Immunoassay (CMIA) 05/29/2024 8:47 AM EST 05/29/2024 11:30 AM EST us Generic External Data Provider LAB BLOOD ORDERAB LES Final Result Performing Organization Address [facility] Co de Phone Number [facility] [address] [place] [phone] * Albumin, Random Urine W/Creatinine (05/29/2024 8:47 AM EST) Creatinine, Urine 232.73 mg/dL [facility] Microalbumin Urine 19.0 mg/L [facility] Microalbum Creatinine Ratio Ur 8.1 <30 ug/mg cr [facility] Comment:Albumin/Creatinine R atio Reference Ranges: Normal: < 30 ug/mg creatinine Microalbuminuria: 30 - 300 ug/mg creatinineClinical Albuminuria: > 300 ug/mg creatinine Urine (Urine, Random) 05/29/2024 8:47 AM EST 05/29/2024 11:17 AM EST us Jazlyn Gagnon DO LAB URINE ORDERABLES Final R esult Performing Organization Address [facility] Co de Phone Number [facility] [address] [place] [phone] * Hepatitis C Antibody with Reflex to HCV, RNA, Quantitative, Real-Time PCR (05/29/2024 8:47 AM EST) Hepatitis C Antibody Nonreactive Nonreactive [facility] Comment:Antibodies to HCV no t detected; does not exclude early acuteHCV infection. Blood Venous blood specimen / Unknown 05/29/2024 8:47 AM EST 05/29/2024 11:30 AM EST Jazlyn Gagnon DO LAB BLOOD ORDERABLES Final R esult Performing Organization Address [facility] Co de Phone Number [facility] [address] [place] [phone] * Alpha-Fetoprotein, Tumor Marker (05/29/2024 8:47 AM EST) Pathologist [facility] Alpha Fetoprotein 1.3 <6.1 ng/mL [facility] Comment:This test was perfor med using the Srinivas Coulterchemiluminescent method. Values obtained fromdifferent assay methods cannot be usedinterchangeably. AFP levels, regardless ofvalue, should not be interpreted as absoluteevidence of the presence or absence of disease.THIS TEST WAS PERFORMED AT:[employer] [place] [phone] AMOR MD Blood Venous blood specimen / Unknown 05/29/2024 8:47 AM EST 05/29/2024 11:30 AM EST us Jazlyn Gagnon DO LAB BLOOD ORDERABLES Final R esult [facility] [address] [place] [phone] * Chlamydia/N. Gonorrhoeae RNA, TMA, Urogenitial (05/29/2024 8:47 AM EST) [facility] CT PCR NOT DETECTED Not Detect. [facility] Comment:A not detected test result does not exclude the possibilityof infection because test results can be affected byimproper specimen collection, concurrent antibiotic therapy,or the number of organisms in the specimen which may bebelow the sensitivity of the test. As with many diagnostictests, results from the Xpert CT/NG assay should beinterpreted in conjunction with other laboratory andclinical data available to the clinician.Xpert CT/NG performance has not been evaluated in patientsless than 14 years of age. The assay should not be used forthe evaluationof suspected sexual abuse or for other medico-legalindications. Additional testing is recommended in anycircumstance when false positive or false negative resultscould lead to adverse medical, social or psychologicalconsequences. NG PCR NOT DETECTED Not Detect. [facility] Comment:A not detected test result does not exclude the possibilityof infection because test results can be affected byimproper specimen collection, concurrent antibiotic therapy,or the number of organisms in the specimen which may bebelow the sensitivity of the test. As with many diagnostictests, results from the Xpert CT/NG assay should beinterpreted in conjunction with other laboratory andclinical data available to the clinician.Xpert CT/NG performance has not been evaluated in patientsless than 14 years of age. The assay should not be used forthe evaluationof suspected sexual abuse or for other medico-legalindications. Additional testing is recommended in anycircumstance when false positive or false negative resultscould lead to adverse medical, social or psychologicalconsequences. Urine Urethral structure / Unknown 05/29/2024 8:47 AM EST 05/29/2024 11:17 AM EST Narrative [facility] - 05/29/2024 1:16 PM EST Urine us Jazlyn Gagnon DO LAB MICROBIOLOGY - GENERAL O RDERABLES Final Result Performing Organization Address [facility] Co de Phone Number [facility] [address] [place] [phone] * RPR (Monitor) with Reflex to??Titer (05/29/2024 8:47 AM EST) RPR (Monitor) w/Refl Titer NON-REACTI VE NON-REACT HEL[facility] Comment:THIS TEST WAS PERFOR MED AT:[employer] [address] [phone] AMOR MD Rapid Plasma Reagin Ab Titer TNP [facility] Blood Venous blood specimen / Unknown 05/29/2024 8:47 AM EST 05/29/2024 11:30 AM EST us Jazlyn Gagnon DO LAB BLOOD ORDERABLES Final R esult Performing Organization Address [facility] Co de Phone Number [facility] [address] [place] [phone] * HIV-1/2 Antigen and Antibodies, Fourth Generation, with Reflexes (05/29/2024 8:47 AM EST) Pathologist [facility] HIV AB/AG Nonreactive Nonreactive [facility] Comment:HIV-1 p24 Ag and/or HIV-1/HIV-2 Ab not detected.A test result that is nonreactive does not exclude thepossibility of exposure to or infection with HIV-1 and/orHIV-2. Nonreactive results in this assay for individualswith prior exposure to HIV-1 and/or HIV-2 may be due toantigen and antibody levels that are below the limit ofdetection of this assay.The [employer] HIV Ag/Ab Combo assay result andsupplemental assay results should be interpreted inconjunction with the patient's clinical presentation,history and other laboratory results. If the results areinconsistent with clinical evidence, additional testing issuggested to confirm the result. Blood Venous blood specimen / Unknown 05/29/2024 8:47 AM EST 05/29/2024 11:30 AM EST Jazlyn Gagnon DO LAB BLOOD ORDERABLES Final R esult [facility] [address] [place] [address] [phone] * CBC (05/29/2024 8:47 AM EST) Pathologist [facility] White Blood Count 7.5 4.8 - 10.8 X10*3/uL [facility] Red Blood Count 5.63 4.60 - 5.80 X10*6/uL [facility] Hemoglobin 16.7 14.0 - 18.0 g/dl [facility] Hematocrit 48.0 42.0 - 52.0 % [facility] Mean Corpuscular Volume 85.3 80.0 - 98.0 fL [facility] Mean Corpuscular Hemoglobin 29.7 27.0 - 33.0 pg [facility] Mean Corpuscular HGB Conc 34.8 31.0 - 36.0 g/dl [facility] Red Cell Distribution Width 12.2 11.0 - 16.0 % [facility] Platelet Count 225 160 - 400 X10*3/uL [facility] Mean Platelet Volume 9.8 9.4 - 12.4 fL [facility] NRBC Pct Auto 0.0 0.0 - 0.2 /100WBC [facility] NRBC Abs Auto 0.000 0.0 - 0.012 X10*3/uL [facility] Blood Venous blood specimen / Unknown 05/29/2024 8:47 AM EST 05/29/2024 11:30 AM EST Jazlyn Gagnon DO LAB BLOOD ORDERABLES Final R esult Performing Organization Address [facility]/ZIP Co de Phone Number [facility] [address] [place] [phone] * TSH (05/29/2024 8:47 AM EST) Thyroid Stimulating Hormone 1.77 0.32 - 4.0 uIU/mL [facility] Comment:TSH 3rd Generation ( [employer]) Blood Venous blood specimen / Unknown 05/29/2024 8:47 AM EST 05/29/2024 11:30 AM EST Jazlyn Gagnon DO LAB BLOOD ORDERABLES Final R esult Performing Organization Address [facility] Co de Phone Number [facility] [address] [place], [place] [phone] * T4, Free (05/29/2024 8:47 AM EST) Free T4 (Free Thyroxine) 0.96 0.71 - 1.85 ng/dL [facility] Blood Venous blood specimen / Unknown 05/29/2024 8:47 AM EST 05/29/2024 11:30 AM EST Jazlyn Gagnon DO LAB BLOOD ORDERABLES Final R esult Performing Organization Address City/[facility]/ZIP Co de Phone Number [facility] [address] [place] [address] [phone] * Hemoglobin A1c (05/29/2024 8:47 AM EST) Hemoglobin A1c 5.6 <6.0 % [facility] Comment:Hemoglobin A1C Refer ence Range Adults: 4.8 - 6.0 % Non diabetic: < 6.0 % Goal: < 7.0 %Additional Action Suggested: > 8.0 %Note: Hemoglobin A1c results are invalid for patients with abnormal amounts of HbF. Blood transfusions may impact the HbA1c concentration in the patient sample. Estimated Average Glucose 114 mg/dL [facility] Comment:eAG = Estimated ave rage glucose which is %A1C expressed asaverage glucose, using the formula of the E4Q-UkxintyVefursh Glucose study (ADAG), Diabetes Care, Vol.31,#8,2007 Blood Venous blood specimen / Unknown 05/29/2024 8:47 AM EST 05/29/2024 11:30 AM EST us Jazlyn Gagnon DO LAB BLOOD ORDERABLES Final R esult [facility] [address] [place] [phone] * (ABNORMAL) Hepatic Function Panel (05/29/2024 8:47 AM EST) Bilirubin, Total 1.7(H) 0.0 - 1.0 mg/dL [facility] Bilirubin, Direct 0.5 0.0 - 0.5 mg/dL [facility] Aspartate Amino Transferase 43(H) 5 - 37 U/L [facility] Alanine Aminotransferase 71(H) 0 - 40 U/L [facility] Total Protein 8.1(H) 6.5 - 8.0 g/dL [facility] Albumin Level 4.2 3.5 - 5.0 g/dL [facility] Alkaline Phosphatase 65 39 - 117 U/L [facility] Blood Venous blood specimen / Unknown 05/29/2024 8:47 AM EST 05/29/2024 11:30 AM EST Jazlyn Gagnon LAB BLOOD ORDERABLES Final R esult Performing Organization Address [facility] Co de Phone Number [facility] [address] [place] [phone] * (ABNORMAL) Lipid Panel, Standard (05/29/2024 8:47 AM EST) Triglycerides 180(H) <150 mg/dL [facility] Comment:Desirable Triglyceri de: less than 150 mg/dLBorderline High Triglyceride 150-199 mg/dLHigh Triglyceride: 200-499 mg/dLVery High Triglyceride: greater than or equal to 5OO mg/dL Cholesterol 141 <200 mg/dL [facility] Comment:Desirable Cholestero l: less than 200 mg/dLBorderline High Cholesterol: 200-239 mg/dLHigh Cholesterol: greater than 239 mg/dL LDL Cholesterol Calculated 71 <100 mg/dL [facility] Comment:Desirable LDL: less than 100 mg/dLNear Optimal/Above Optimal LDL: 110- 129 mg/dLBorderline High LDL: 130-159 mg/dLHigh LDL: 160-189 mg/dLVery High LDL: greater than or equal to 190 mg/dL HDL Cholesterol 34(L) >40 mg/dL [facility] Comment:Desirable HDL: great er than 40 mg/dL Note: This HDL assay may give artificially low results in patients with liver disease. Blood Venous blood specimen / Unknown 05/29/2024 8:47 AM EST 05/29/2024 11:30 AM EST Jazlyn Gagnon DO LAB BLOOD ORDERABLES Final R esult Performing Organization Address City/[facility] Co de Phone Number [facility] [address] [place] [phone] * (ABNORMAL) Basic Metabolic Panel (05/29/2024 8:47 AM EST) Sodium 138 135 - 145 mmol/L [facility] Potassium 4.0 3.3 - 5.1 mmol/L [facility] Chloride 107 96 - 108 mmol/L [facility] Carbon Dioxide 25 22 - 29 mmol/L [facility] Anion Gap 10(L) 12 - 20 [facility] Urea Nitrogen (BUN) 16 9 - 16 mg/dL [facility] Creatinine, Serum 0.86 0.5 - 1.4 mg/dL [facility] Estimated Glomerular Filt Rate >60 [facility] Comment:Chronic Kidney Disea se: Estimated GFR < 60 mL/min/[id number] Kidney Disease: Estimated GFR < 15 mL/min/1.73m2 Glucose 129(H) 60 - 115 mg/dL [facility] Calcium 8.5 8.4 - 10.2 mg/dL [facility] Blood Venous blood specimen / Unknown 05/29/2024 8:47 AM EST 05/29/2024 11:30 AM EST us Jazlyn Gagnon DO LAB BLOOD ORDERABLES Final R esult [facility] [address], [place] [phone] * XR Shoulder 2+ Views Left (05/20/2024 2:52 PM EST) Anatomical Region Laterality Modality Upper Extremities, Shoulder Left Radi ographic Imaging 05/20/2024 2:52 PM EST Narrative 05/20/2024 3:36 PM EST ?[facility] ?[address] ?[place] [address] ?XRay Report ? Signed ? Patient: Srikanth Smith,Jose Antonio ?MR#: ?? [id number] ? : 1980 ?Acct:[id number] ? Age/Sex: 44 / M ?ADM Date: 01/08/25 ? Loc: HO.HHCX ? Attending Dr: Jazlyn Gagnon DO ? Ordering Physician: Jazlyn Gagnon DO ?? Date of Service: 05/20/24 ?? Procedure(s): XR shoulder LT min 2V ?? Accession Number(s): [id number] ? cc: Jazlyn Gagnon DO ? EXAMINATION: ??XR SHOULDER 2 OR MORE VIEWS LEFT ? HISTORY: worsening L shoulder pain ? COMPARISON: There are no prior studies available for comparison. ? FINDINGS: ? Three views of the left shoulder are submitted. ??Osseous mineralization ?? is normal. ??There is no fracture or dislocation. ??The joint spaces are ?? preserved. ??The soft tissues are unremarkable. ? XR/XR shoulder LT min 2V ?? IMPRESSION: ? Unremarkable examination of the left shoulder. ? Electronically signed by: ??Russ Mayberry MD ??05/20/2024 03:34 PM EST ? Dictated By: ?Russ Mayberry MD ? Signed By: ?<Electronically signed by Russ Mayberry MD in OV> ?05/20/24 1534 ? DD/ 1452 ? TD/TT: 05/20/24 1500 ? Pharmacy Intake Technician: ? Procedure Note Henrry Jha - 05/20/[address] [address] XRay Report Signed Patient: Dallas Duggan#: [id number] : 1980Acct:[id number] Age/Sex: 44 / MADM Date: 05/20/24 Loc: HO.HHCX Attending Dr: Jazlyn Gagnon DO Ordering Physician: Jazlyn Gagnon DO Date of Service: 05/20/24 Procedure(s): XR shoulder LT min 2V Accession Number(s): [id number] cc: Jazlyn Gagnon DO EXAMINATION: XR SHOULDER 2 OR MORE VIEWS LEFT HISTORY: worsening L shoulder pain COMPARISON: There are no prior studies available for comparison. FINDINGS: Three views of the left shoulder are submitted. Osseous mineralization is normal. There is no fracture or dislocation. The joint spaces are preserved. The soft tissues are unremarkable. XR/XR shoulder LT min 2V IMPRESSION: Unremarkable examination of the left shoulder. Electronically signed by: Russ Mayberry MD 05/20/2024 03:34 PM EST RP Dictated By: Russ Mayberry MD Signed By: <Electronically signed by Russ Mayberry MD in OV> 05/20/24 1534 DD/ 1452 TD/TT: 05/20/24 1500 Pharmacy Intake Technician: Jazlyn Gagnon DO IMG XR PROCEDURES Edited Res ult - Final * Hm Colonoscopy (02/11/2013 1:36 PM EDT) Historical Provider HEALTH MAINTENANCE Final Result from Last 3 Months or Most Recently Relevant to Health Maintenance Insurance [employer] Care Teams Director Of Corporate Real Estate Relationship Specialty Start Date End Date Jazlyn Gagnon DO [address] [place] [phone] PCP - General Family Medicine 05/13/18
--- OUTSIDE RECORDS SUMMARY | 2024-06-08 21:59 | XMS_ITS | Encounter Summary ---
Author Organization [employer] Address [address] [place] [address] 7t [place] [address] Care Team Providers Care Manager Medicaid Name Role Phone Jazlyn Gagnon DO Primary Care Provider [phone] Encounter Details Date Type Department Care Team (Late st Contact Info) Description 06/15/2022 Orders Only [facility] [address] [place] [address] Jazlyn Serrano LPN Social History Tobacco Use [...] Orientation Straight 03/12/2022 10 :18 AM EDT COVID-19 Exposure Response Date Recorded In the last 10 days, have yo u been in contact with someone who was confirmed or suspected to have Coronavirus/COVID-19? No / Unsure 05/25/2022 4:16 PM EST documented as of this encounter Plan of Treatment Not on file documented as of this encounter Visit Diagnoses Not on filedocumented in this encounter Care Teams Manager Medicaid Relationship Specialty Start Date End Date Jazlyn Gagnon DO [address] [place] [phone] PCP - General Family Medicine 05/13/18 documented as of this encounter
--- OUTSIDE RECORDS SUMMARY | 2024-06-08 21:59 | XMS_ITS | Encounter Summary ---
Author Organization [employer] Address [address] [place] [address] 7 [place] [address] Care Team Providers Care Social Media Editor Name Role Phone Jazlyn Gagnon DO Primary Care Provider + [phone] Encounter Details Date Type Department Care Team (Late st Contact Info) Description 07/10/[address] [facility] [address] [place] [address] Jazlyn Gagnon DO [address] [place] [address] Social History Tobacco Use Types Packs/Day Years [...] on file documented as of this encounter Procedures Procedure Name Priority Date/Time Associated Diagnosis Comments HM COLONOSCOPY Routine 02/11/2013 1:36 PM EDT documented in this encounter Results * Hm Colonoscopy (02/11/2013 1:36 PM EDT) us Historical Provider HEALTH MAINTENANCE Final Result documented in this encounter Visit Diagnoses Not on filedocumented in this encounter Care Teams Social Media Editor Relationship Specialty Start Date End Date Jazlyn Gagnon DO [address] [place], [place] [phone] PCP - General Family Medicine 05/13/18 documented as of this encounter
--- OUTSIDE RECORDS SUMMARY | 2024-06-08 21:59 | XMS_ITS | Encounter Summary ---
Author Organization [employer] Address [address] [place] [address] 7 [place] [address] Care Team Providers Care Cattle Producers Name Role Phone Jazlyn Gagnon DO Primary Care Provider + [phone] Reason for Visit * Reason Comments Med Refill Encounter Details Date Type Department Care Team (Late st Contact Info) Description 05/07/2022 Refill [facility] [address] [place] [address] Jazlyn Gagnon DO [address] [place] [address] Social History Tobacco Use Types Packs/Day Years [...] suspected to have Coronavirus/COVID-19? No / Unsure 05/02/2022 3:30 PM EST documented as of this encounter Plan of Treatment Not on file documented as of this encounter Visit Diagnoses Not on filedocumented in this encounter Care Teams Cattle Producers Relationship Specialty Start Date End Date Jazlyn Gagnon DO [address] [place], [place] [phone] PCP - General Family Medicine 05/13/18 documented as of this encounter
--- OUTSIDE RECORDS SUMMARY | 2024-06-08 21:59 | XMS_ITS | Encounter Summary ---
Author Organization [employer] Address [address] [place] [address] [address] [place] [address] Care Team Providers Care Freezer Assistant Name Role Phone Jazlyn Gagnon DO Primary Care Provider + [phone] Reason for Visit * Reason Comments Med Refill Encounter Details Date Type Department Care Team (Late st Contact Info) Description 06/13/2023 Refill [facility] MED[facility]INE [address] [place] [address] Jazlyn Gagnon DO [address] [place] [address] Other chronic pain Social History Tobacco Use Types Packs/Day Years [...] of this encounter Visit Diagnoses Diagnosis Other chronic pain documented in this encounter Care Teams Freezer Assistant Relationship Specialty Start Date End Date Jazlyn Gagnon DO [address] [place] [address] PCP - General Family Medicine 05/13/18 documented as of this encounter
--- OUTSIDE RECORDS SUMMARY | 2024-06-08 21:59 | XMS_ITS | Encounter Summary ---
Author Organization [employer] Address [address] [place] [address] 7t [place] [address] Care Team Providers Care Bobbin Cleaning Machine Operator Name Role Phone PipeJazlyn narayanan Primary Care Provider + [phone] Reason for Visit * Reason Onset Date Comments Results 06/05/2024 Encounter Details Date Type Department Care Team ([facility] st Contact Info) Description 06/05/2024 Refill [facility] MEDICINE [address] [place] [address] Estela Santo, RN [address] [place] [address] Social History Tobacco Use Types Packs/Day Years [...] encounter Miscellaneous Notes * Telephone Encounter - Estela Santo RN - 06/05/2024 1:01 PM EST RN reviewed BW results with PCP. BW results returned stable except for vitamin D which was low. PCPwill send vitamin D for patient to to take daily. TC placed to patient [phone] however no answer, RN left VM requesting CB to red team nurses. TC placed to [phone] via [employer] interpre[employer] (Ion #82768) in regards to above message. Patient verbalized understanding and is aware of RX being sent to the pharmacy. Patient to f/u PRN. documented in this encounter Plan of Treatment Not on file documented as of this encounter Visit Diagnoses Not on filedocumented in this encounter Additional Health Concerns Assessment Noted Time PHQ-9 Depression Total Score: 0 11/06/19 24 9:54 AM EDT documented as of this encounter Care Teams Bobbin Cleaning Machine Operator Relationship Specialty Start Date End Date Jazlyn Gagnon DO [address] [place] [address] PCP - General Family Medicine 05/13/18 documented as of this encounter
--- OUTSIDE RECORDS SUMMARY | 2024-06-08 21:59 | XMS_ITS | Encounter Summary ---
Author Organization [email or web address] Address [address] [place] [address] [address] [place] [address] Care Team Providers Care Dowel Inspector Name Role Phone Jazlyn Gagnon DO Primary Care Provider [phone] Encounter Details Date Type Department Care Team (Late st Contact Info) Description 05/17/2022 Orders Only [facility] [address] [place] [address] Jazlyn Serrano LPN Social History Tobacco Use [...] on filedocumented in this encounter Care Teams Dowel Inspector Relationship Specialty Start Date End Date Jazlyn Gagnon DO [address] [place] [phone] PCP - General Family Medicine 05/13/18 documented as of this encounter
--- OUTSIDE RECORDS SUMMARY | 2024-06-08 21:59 | XMS_ITS | Encounter Summary ---
Author Organization [email or web address] Address [address] [place] [address] 7 [place] [address] Care Team Providers Care Chucking Machine Operator Name Role Phone Jazlyn Gagnon DO Primary Care Provider + [phone] Reason for Visit * Reason Onset Date Comments Med Refill 04/17/2023 Encounter Details Date Type Department Care Team ([facility] st Contact Info) Description 04/17/2023 Telephone [facility] MEDICINE [address] [place] [address] Jazlyn Gagnon DO [address] [place] [address] Med Refill Social History Tobacco Use Types Packs/Day Years [...] Telephone Encounter - Jazlyn Serrano LPN - 04/17/2023 3:27 PM EST Medication was sent to [facility] on 04/15/23. * Telephone Encounter - Reginaldo Smith - 04/17/2023 3:25 PM EST Tc from pt requesting medication refill for zolpidem (Ambien) 10 MG tablet. documented in this encounter Plan of Treatment Not on file documented as of this encounter Visit Diagnoses Not on filedocumented in this encounter Care Teams Chucking Machine Operator Relationship Specialty Start Date End Date Jazlyn Gagnon DO [address] [place] [address] PCP - General Family Medicine 05/13/18 documented as of this encounter
--- OUTSIDE RECORDS SUMMARY | 2024-06-08 21:59 | XMS_ITS | Encounter Summary ---
Author Organization [employer] Address [address] [place] [address] 7t [place] [address] Care Team Providers Care Enrollment Representative Name Role Phone Jazlyn Gagnon DO Primary Care Provider [phone] Encounter Details Date Type Department Care Team (Latest Contact Info) Description 08/10/2020 [facility] Dental, Provider, DDS Social History Tobacco Use Types Packs/Day Years Used Date Smoking Tobacco: Never Assessed Sex and Gender Information Value Date Recorded Sex Assigned at Male 03/12/2022 10:18 AM EDT Legal Sex Male 10:18 AM EDT Gender Identity Male 03/12/2022 10:18 AM EDT Sexual Orientation Straight 03/12/2022 10 :18 AM EDT documented as of this encounter Plan of Treatment Not on file documented as of this encounter Visit Diagnoses Not on filedocumented in this encounter Care Teams Enrollment Representative Relationship Specialty Start Date End Date Jazlyn Gagnon DO [address] [place] [phone] PCP - General Family Medicine 05/13/18 documented as of this encounter
--- OUTSIDE RECORDS SUMMARY | 2024-06-08 21:59 | XMS_ITS | Encounter Summary ---
Author Organization [employer] Address [address] [place] [address] 7t [place] [address] Care Team Providers Care Radiologist Chief Of Breast Imaging Name Role Phone Jazlyn Gagnon DO Primary Care Provider [phone] Encounter Details Date Type Department Care Team ([facility] st Contact Info) Description 04/27/2022 Orders Only [facility] MED [facility] PEDS [address] [place] [address] Jazlyn Serrano LPN Social History Tobacco Use [...] on filedocumented in this encounter Care Teams Radiologist Chief Of Breast Imaging Relationship Specialty Start Date End Date Jazlyn Gagnon DO [address] [place] [phone] PCP - General Family Medicine 05/13/18 documented as of this encounter
--- OUTSIDE RECORDS SUMMARY | 2024-06-08 21:59 | XMS_ITS | Encounter Summary ---
Author Organization [employer] Address [address] [place] [address] 7[address] [place] [address] Care Team Providers Care Aquatic Instructor Name Role Phone PipeJazlyn narayanan Primary Care Provider + [phone] Encounter Details Date Type Department Care Team (Late st Contact Info) Description 05/29/2024 Orders Only GENERIC EXTERNAL DATA DEPARTMENT Provider, Generic External Data Social History Tobacco Use Types Packs/Day Years [...] PSA, FREE Routine 05/29/2024 8:47 AM EST documented in this encounter Results * PSA, Total With Reflex to PSA, Free (05/29/2024 8:47 AM EST) PSA,Total (Free>4and<10) 0.46 0.00 - 4.00 ng/mL [facility] Comment:A Free PSA was not p [...] are between 4.0 and 10.0 ng/mL.PSA methodology: [employer] Alinity i ChemiluminescentMicroparticle Immunoassay (CMIA) 05/29/2024 8:47 AM EST 05/29/2024 11:30 AM EST us Generic External Data Provider LAB BLOOD ORDERAB LES Final Result [facility] [address] [place] [phone] documented in this encounter Visit Diagnoses Not on filedocumented in this encounter Additional Health Concerns Assessment Noted Time PHQ-9 Depression Total Score: 0 11/06/19 24 9:54 AM EDT documented as of this encounter Care Teams Aquatic Instructor Relationship Specialty Start Date End Date Jazlyn Gagnon DO [address] [place] [phone] PCP - General Family Medicine 05/13/18 documented as of this encounter
== END ==
LOC: HO.SL 20:30
PROVIDERS: Visit Provider Family Medicine
DX: Z13.89 Encounter for screening for other disorder (principal)